=== PATIENT | female | born 1980 | race Caucasian/White ===

== ENCOUNTER → 2017-11-18 13:17 | Outpatient (POV) | payer BC, SELFPAY | PROVIDERS: Visit Provider Nurse Practitioner Acute Care | DX: Z00.00 Encounter for general adult medical examination without abnormal findings (principal) ==

== ENCOUNTER → 2017-12-19 10:18 | Outpatient (REF) | payer BC, SELFPAY ==
[2017-12-20 11:22] LABS: Hemoglobin A1C 5.1 % (0.0-7.0)
== END ==
LOC: LAB 10:18
PROVIDERS: Family Provider Emergency Medicine; PCP Nurse Practitioner Family; Visit Provider Nurse Practitioner Family
DX: R53.83 Other fatigue (principal)
CPT/HCPCS: 83036

== ENCOUNTER 2018-04-15 17:43 | Observation (INO) ==
--- NOTE | 2018-04-15 18:15 | Emergency Department Note ---
ED Disposition Condition on Discharge: Fair - Critical Care Critical Care Time: No <VioletaMatheus - Last Filed: 04/15/18 19:58> <Silverio Sanchez - Last Filed: 04/15/18 20:20> Clinical Impression: Abdominal pain, generalized Bilious vomiting Qualifiers: Nausea presence: with nausea Qualified Code(s): R11.14 - Bilious vomiting Disposition: Admitted as Observation Attestation: On 04/15/18, the high probability of a clinically significant, sudden or life threatening deterioration of the following system(s) required my full and direct attention, intervention and personal management. The time I documented below is in addition to time spent performing reported procedures but includes the following listed in this critical care notation. Medical Decision Making - Elio Inquiry Pt receiving controlled substance: Yes Elio was queried for this patient: No Reason not queried -: Emergent pt cond-no time Risks and benefits of using a controlled substance: were not discussed with pt by me - Lab Data Result diagrams: 04/15/18 18:20 04/15/18 18:20 - Reevaluation(s) Time: 19:58 <VioletaMatheus - Last Filed: 04/15/18 19:58> - Lab Data Result diagrams: 04/15/18 18:20 04/15/18 18:20 - CT Data CT Scan: Abdomen, Pelvis Time Received: 20:[address] Reviewed: Yes: I have viewed the radiologist's interpretation Preliminary Findings: Abnormal (see report) <Silverio Sanchez - Last Filed: 04/15/18 20:20> Vital Signs: 04/15/18 17:43 Temperature 97.9 F Temperature Source Oral Pulse Rate [Right Radial] 62 Respiratory Rate 24 Blood Pressure [Right Arm] 158/84 Blood Pressure Mean [Right Arm] 108 Blood Pressure Source [Right Arm] Automatic Cuff Blood Pressure Position [Right Arm] Sitting 02 Sat by Pulse Oximetry 99 Oxygen Delivery Method Room Air - Lab Data Lab Results 04/15/18 12:20: Serum HCG, Qual Negative 04/15/18 18:20: WBC 14.0 H, RBC 5.43 H, Hgb 16.2, Hct 49.8 H, MCV 91.6, MCH 29.8 , MCHC 32.6, RDW 13.0, Plt Count 235, MPV 8.0, Neut % (Auto) 87.9 H, Lymph % ( Auto) 8.4 L, [place] % (Auto) 2.2, Eos % (Auto) 1.3, Baso % (Auto) 0.1, Neut # ( Auto) 12.3 H, Lymph # (Auto) 1.2, [place] # (Auto) 0.3, Eos # (Auto) 0.2, Baso # ( Auto) 0.0, Total Counted 100, Neutrophils % (Manual) 89 H, Lymphocytes % (Manual ) 9 L, Monocytes % (Manual) 2, Platelet Estimate Normal, RBC Morphology Normal 04/15/18 18:20: Sodium 142, Potassium 3.8, Chloride 106, Carbon Dioxide 23, Anion Gap 16.8 H, BUN 13, Creatinine 0.59, Estimated Creat Clear 130, Estimated GFR 114, Est GFR ( Amer) 138, Glucose 141 H, Calcium 9.4, Total Bilirubin 1.4 H, AST 17, ALT 20, Alkaline Phosphatase 72, Total Protein 7.9, Albumin 4.2, Globulin 3.7 H, Albumin/Globulin Ratio 1.1, Lipase 59 L 04/15/18 18:30: Troponin I < 0.02 04/15/18 19:26: Urine Color Yellow, Urine Appearance Clear, Urine pH 6.5, Ur Specific [place] 1.015, Urine Protein Negative, Urine Glucose (UA) Negative, Urine Ketones 3+, Urine Blood 2+, Urine Nitrate Negative, Urine Bilirubin Negative, Urine Urobilinogen 0.2, Ur Leukocyte Esterase Negative, Urine RBC 10- 20, Urine WBC 3-5, Ur Squamous Epith Cells 3-5, Urine Bacteria 1+, Urine Mucus 1 + Orders (Tests/Meds): ED MEDICATIONS Discontinued Medications Generic Name Dose Route Start Last Admin Trade Name Freq PRN Reason Stop Dose Admin Famotidine 20 mg 04/15/18 18:33 04/15/18 18:45 Pepcid 20mg/2ml Vial IV 04/15/18 18:34 20 mg ONCE ONE Administration Sodium Chloride 1,000 mls @ 999 mls/hr 04/15/18 18:15 04/15/18 18:09 Sod Chlor 0.9% 1000ml Bag IV 04/15/18 19:15 999 mls/hr .[id number] JANET Administration Iopamidol 75 ml 04/15/18 19:13 04/15/18 19:14 [id number]; 75ml Vial IV 04/15/18 19:14 75 ml ONCE ONE Administration Morphine Sulfate 4 mg 04/15/18 18:29 04/15/18 18:45 Morphine 4mg/Ml Syringe IV 04/15/18 18:30 4 mg ONCE ONE Administration Ondansetron HCl 4 mg 04/15/18 18:08 04/15/18 18:09 Zofran 4mg/2ml Vial IV 04/15/18 18:09 4 mg ONCE ONE Administration Prochlorperazine Edisylate 5 mg 04/15/18 19:59 04/15/18 20:08 Compazine 10mg/2ml Vial IV 04/15/18 20:00 5 mg ONCE ONE Administration Promethazine HCl 12.5 mg 04/15/18 18:29 04/15/18 18:46 Phenergan 25mg/Ml 1ml Vial IV 04/15/18 18:30 12.5 mg ONCE ONE Administration Sodium Chloride 25 ml 04/15/18 18:29 04/15/18 18:47 Sod Chlor 0.9% 25ml Bag IV 04/15/18 18:30 25 ml ONCE ONE Administration Sodium Chloride 10 ml 04/15/18 19:13 04/15/18 19:14 Rad-Saline Flush 10ml Syringe IV 04/15/18 19:14 10 ml ONCE ONE Administration ORDERS Category Date Time Status CT abdomen pelvis w con Stat Cat Scan 04/15/18 18:31 Taken - ECG Data Tracing #1 EKG interpreted by Matheus Mcdaniel MD: Rhythm: sinus bradycardia Rate: 52 [place]: normal Ectopy: none Conduction: normal ST Segment Changes: none T Wave Changes: none Q Waves: none No evidence of acute ischemia or injury (Matheus Mcdaniel) - Reevaluation(s) Reevaluation #1: States minimally improved. Has vomited 3 times since she received Phenergan. The pain is more intermittent now. (Matheus Mcdaniel) Medical Decision Narrative: 8:00 PM: At shift change, I have discussed the patient with Dr. Sanchez, who will assume care of the patient at this time. I have discussed all clinical information including history, physical and diagnostic study results. Preliminary diagnoses based on information available at this point have been recorded by me. Controlled substance administration and critical care statement are also preliminary, as of the time of handoff. (Matheus Mcdaniel) General Adult HPI - General Mode of Arrival: Wheelchair Limitations: No Limitations Description of Symptoms (Recalled from ER Triage Doc. by RN): abd pain for a year. states doctors have been trying to "figure out whats going on forever and can't." reports vomiting today and has taken 3 zofran. pt constipated as well. <Matheus Mcdaniel - Last Filed: 04/15/18 19:58> <Silverio Sanchez - Last Filed: 04/15/18 20:20> - General Chief complaint: Abdominal Pain Stated complaint: ABD PAIN Time Seen by Provider: 04/15/18 18:15 - History of Present Illness HPI narrative: Recurrent episodes of abdominal pain and vomiting for 10 months or more. She says when she initially got this she had daily abdominal pain and vomiting for a whole month. Eventually had a cholecystectomy done by Dr. Sorto. Symptoms did not resolve. Since then she has been seen by Dr. Figueroa gastroenterology and is currently seeing Dr. Franks gastroenterology in [place]. About 3-4 weeks ago she had an upper and lower endoscopy. She was supposed to see Dr. Franks today for follow-up, but says that she could not because she was too sick with abdominal pain and vomiting. She says that she had diarrhea that started a couple of days ago, no blood. This morning she started with severe periumbilical abdominal pain and repetitive episodes of vomiting. She has chronic nausea and is on Zofran daily, today it did not help the nausea or vomiting. She states that nausea has been constant and daily since all of this started, but the severe episodes of pain are infrequent. She says this is the first significant episode of pain she has had in about 7-8 months. States she is also having a lot of belching and reflux. She is not on any sort of antacids. (Matheus Mcdaniel) - Related Data Home Medications Medication Instructions Recorded Confirmed meloxicam 7.5 mg tablet 7.5 mg PO BID tab 12/19/17 ondansetron HCl 4 mg tablet 4 mg PO Q4H PRN 12/19/17 Previous Rx's Medication Instructions Recorded metoclopramide 5 mg tablet 5 mg PO TID #42 tab 12/19/17 naproxen 500 mg tablet 500 mg PO Q12H #60 tab 12/19/17 ondansetron HCl 4 mg tablet 4 mg PO Q8H PRN #14 tab 02/18/18 clonidine HCl 0.1 mg tablet 0.1 mg PO DAILY #90 tab 03/09/18 sertraline 50 mg tablet 75 mg PO DAILY #90 tab 03/09/18 Allergies Allergy/AdvReac Type Severity Reaction Status Date / Time Penicillins [PENICILLINS] Allergy Unknown Verified 04/15/18 17:58 [facility] History I have reviewed the patient's past medical history: Yes Medical History: Reports:: Anxiety, Depression, Hypertension Amputation: No Fractures: No - Social History Educational Level: Completed GED/General Educational Development Smoking Status: Current every day smoker Tobacco Type: cigarettes # Packs/Day (cigarettes): 1 Alcohol Intake: never Substance Use Type: denies use - Psychiatric History Expresses thoughts of harming self/others: None Suicide Plan Description: No Plan Pschychiatric History:: Reports:: Anxiety, Depression <VioletaMatheus - Last Filed: 04/15/18 19:58> ROS Obtained: Yes All systems reviewed & no additional complaints - Constitutional Constitutional: Denies fever(s) - Cardiovascular Cardiovascular: Denies chest pain - Respiratory Respiratory: No dyspnea - Gastrointestinal Gastrointestingal: Reports: abdominal pain, belching, diarrhea, dyspepsia, nausea, vomiting <KimoMatheus nicole - Last Filed: 04/15/18 19:58> Physical Exam - General General appearance: alert - Head Head exam: atraumatic, normocephalic - Eye Eye exam: Present: normal appearance, PERRL, EOMI - ENT ENT exam: Present: normal exam, normal oropharynx, mucous membranes moist, TM's normal bilaterally, normal external ear exam - Neck Neck exam: Present: normal inspection, full ROM, trachea midline. Absent: meningismus, lymphadenopathy - Chest Chest inspection: Present: normal inspection, symmetric chest wall rise. Absent : tenderness - Respiratory Respiratory exam: Present: normal lung sounds bilaterally. Absent: respiratory distress - Cardiovascular Cardiovascular exam: Present: regular rate, normal rhythm. Absent: JVD - Abdominal Exam Abdominal exam: Present: soft, tenderness, normal bowel sounds. Absent: distention, guarding, rebound, rigidity Abdominal tenderness: Present: diffuse - Extremities Exam Extremities exam: Present: normal inspection, full ROM, normal capillary refill. Absent: calf tenderness - Neurological Exam Neurological exam: Present: alert, oriented X3 - Psychiatric Psychiatric exam: Present: normal affect, normal mood - Skin Skin exam: Present: warm, dry, intact, normal color <Matheus Mcdaniel - Last Filed: 04/15/18 19:58> <Silverio Sanchez - Last Filed: 04/15/18 20:20> - General Comment: Appears uncomfortable, belching frequently. (Matheus Mcdaniel)
[2018-04-15 18:31] LABS: Basophils % 0.1 % (0.1-2.0); Eosinophils # 0.2 K/mm3 (0.0-0.4); Eosinophils % 1.3 % (0.1-12.0); Hematocrit 49.8 % (37.0-47.0); Hemoglobin 16.2 g/dL (12.2-16.2); Lymphocytes # 1.2 K/mm3 (0.7-4.5); Lymphocytes % 8.4 K/mm3 (10-50); Mean Corpuscular HGB Conc 32.6 g/dL (31.8-35.4); Mean Corpuscular Hemoglobin 29.8 pg (27.0-31.2); Mean Corpuscular Volume 91.6 fl (81-99); Monocytes # 0.3 K/mm3 (0.1-1.0); Monocytes % 2.2 % (1.7-9.3); Neutrophils # 12.3 K/mm3 (1.8-7.8); Neutrophils % 87.9 % (37.0-80.0); Platelet Count 235 K/mm3 (142-424); Red Blood Count 5.43 M/mm3 (4.20-5.40)
[2018-04-15 18:45] LABS: Albumin Level 4.2 gm/dL (3.4-5.0); Albumin/Globulin Ratio 1.1 (1.1-1.8); Anion Gap 16.8 mEq/L (5-15); Bilirubin,Total 1.4 mg/dL (0.2-1.0); Calcium 9.4 mg/dL (8.5-10.1); Globulin 3.7 gm/dl (1.3-3.2); Potassium 3.8 mmoL/L (3.5-5.1); Total Protein,Serum 7.9 gm/dL (6.4-8.2)
[2018-04-15 19:43] LABS: Microscopic, Urine URINE MICROSCOPIC (MICROSCOPIC)
[2018-04-15 19:50] LABS: Appearance,Urine CLEAR (Clear); Bilirubin,Urine Negative (Negative); Blood, Urine 2+ (Negative); Color,Urine YELLOW (Yellow); Glucose,Urine (UA) Negative (Negative); Ketones,Urine 3+ (Negative); Leukocyte Esterase,Urine Negative (Negative); PH,Urine 6.5 (5.0-8.5); Protein,Urine Negative (Negative); Specific Gravity, Urine 1.015 (1.005-1.030); Urobilinogen,Urine 0.2 EU/dl (0.2)
[2018-04-15 19:53] LABS: Lymphocytes % 9 % (10-50); Monocytes % 2 % (2-9); Neutrophils % 89 % (42-76); Total Cells Counted 100
[2018-04-15 19:54] LABS: RBC Morphology Normal
[2018-04-15 20:13] LABS: Bacteria,Urine 1+ /lpf
[2018-04-15 20:14] LABS: Mucus,Urine 1+ /lpf
--- NOTE | 2018-04-15 20:41 | History & Physical Report ---
*Admission Date: 04/15/18 *Chief complaint: abd pain *History of present illness: this wf with upper abd pain assoc with vomiting and nausea presents to ed with sx despite at home meds - she has been seen by dr figueroa and also had recent colonoscopy and egd per dr de jesus - she has had gb surg and denied any fever or diarrhea and no melena - ecurrent episodes of abdominal pain and vomiting for 10 months or more. She says when she initially got this she had daily abdominal pain and vomiting for a whole month. Eventually had a cholecystectomy done by Dr. Sorto. Symptoms did not resolve. Since then she has been seen by Dr. Figueroa gastroenterology and is currently seeing Dr. De Jesus gastroenterology in [place]. About 3-4 weeks ago she had an upper and lower endoscopy. She was supposed to see Dr. De Jesus today for follow-up, but says that she could not because she was too sick with abdominal pain and vomiting. She says that she had diarrhea that started a couple of days ago, no blood. This morning she started with severe periumbilical abdominal pain and repetitive episodes of vomiting. She has chronic nausea and is on Zofran daily, today it did not help the nausea or vomiting. She states that nausea has been constant and daily since all of this started, but the severe episodes of pain are infrequent. She says this is the first significant episode of pain she has had in about 7-8 months. States she is also having a lot of belching and reflux. She is not on any sort of antacids. [facility] History I have reviewed the patient's past medical history: Yes Medical History: Reports:: Anxiety, Depression, Hypertension Amputation: No Fractures: No - *Social History Educational Level: Completed GED/General Educational Development Smoking Status: Current every day smoker Tobacco Type: cigarettes # Packs/Day (cigarettes): 1 Alcohol Intake: never Substance Use Type: denies use - Psychiatric History Expresses thoughts of harming self/others: None Suicide Plan Description: No Plan Pschychiatric History:: Reports:: Anxiety, Depression Review of Systems - Review of Systems Review of systems:: pertinent systems reviewed and negative unless documented below - Constitutional Denies fever(s) - Eyes Denies change in vision - ENT Denies sinus pain - *Cardiovascular Denies chest pain - *Respiratory Denies cough - *Gastrointestinal Reports abdominal pain, Reports nausea, Reports vomiting, Denies coffee ground vomit, Denies bright, red blood in stools, Denies black, tarry stools - *Genitourinary Denies blood in urine - *Musculoskeletal Denies joint pain, Denies joint swelling - Integumentary/Breasts Denies rash - *Neurologic Denies seizure-like activity, Denies seizure-like activity - Psychiatric Denies anxiety Meds Home Medications Medication Instructions Recorded Confirmed Type meloxicam 7.5 mg tablet 7.5 mg PO BID tab 12/19/17 History ondansetron HCl 4 mg tablet 4 mg PO Q4H PRN 12/19/17 History Allergies Allergy/AdvReac Type Severity Reaction Status Date / Time Penicillins [PENICILLINS] Allergy Unknown Verified 04/15/18 17:58 Exam Vital signs and Labs for Last 24 Hours: Temp Pulse Resp BP Pulse Ox 97.9 F 62 24 158/84 99 04/15/18 17:43 04/15/18 17:43 04/15/18 17:43 04/15/18 17:43 04/15/18 17:43 Laboratory Results - last 24 hr 04/15/18 12:20: Serum HCG, Qual Negative 04/15/18 18:20: WBC 14.0 H, RBC 5.43 H, Hgb 16.2, Hct 49.8 H, MCV 91.6, MCH 29.8 , MCHC 32.6, RDW 13.0, Plt Count 235, MPV 8.0, Neut % (Auto) 87.9 H, Lymph % ( Auto) 8.4 L, [place] % (Auto) 2.2, Eos % (Auto) 1.3, Baso % (Auto) 0.1, Neut # ( Auto) 12.3 H, Lymph # (Auto) 1.2, [place] # (Auto) 0.3, Eos # (Auto) 0.2, Baso # ( Auto) 0.0, Total Counted 100, Neutrophils % (Manual) 89 H, Lymphocytes % (Manual ) 9 L, Monocytes % (Manual) 2, Platelet Estimate Normal, RBC Morphology Normal 04/15/18 18:20: Sodium 142, Potassium 3.8, Chloride 106, Carbon Dioxide 23, Anion Gap 16.8 H, BUN 13, Creatinine 0.59, Estimated Creat Clear 130, Estimated GFR 114, Est GFR ( Amer) 138, Glucose 141 H, Calcium 9.4, Total Bilirubin 1.4 H, AST 17, ALT 20, Alkaline Phosphatase 72, Total Protein 7.9, Albumin 4.2, Globulin 3.7 H, Albumin/Globulin Ratio 1.1, Lipase 59 L 04/15/18 18:30: Troponin I < 0.02 04/15/18 19:26: Urine Color Yellow, Urine Appearance Clear, Urine pH 6.5, Ur Specific [place] 1.015, Urine Protein Negative, Urine Glucose (UA) Negative, Urine Ketones 3+, Urine Blood 2+, Urine Nitrate Negative, Urine Bilirubin Negative, Urine Urobilinogen 0.2, Ur Leukocyte Esterase Negative, Urine RBC 10- 20, Urine WBC 3-5, Ur Squamous Epith Cells 3-5, Urine Bacteria 1+, Urine Mucus 1 + I & O for Last 24 hours: Intake & Output 04/13/18 04/14/18 04/15/18 04/16/18 11:59 11:59 11:59 11:59 Weight 140 lb - Constitutional no acute distress, average body habitus - *Routine HEENT Exam Head: Present: normocephalic Eye: Present: EOMI, PERRL. Absent: conjunctival icterus ENT: Present: mucous membranes dry - *Routine Neck Exam Present: supple - *Routine Respiratory Exam Present: CTA bilaterally - *Routine Cardiovascular Exam Present: RRR. Absent: murmur - *Routine Abdominal Exam Present: soft, tenderness - *Routine Extremities Exam Present: full ROM - *Routine Skin Exam Present: intact - *Routine Neurological Exam Present: alert, oriented X3, CN II-XII intact - Routine Psychiatric Exam Present: normal affect H&P: Result - Labs Labs: Short CBC 04/15/18 Range/Units 18:20 WBC 14.0 H (4.8-10.8) K/mm3 Hgb 16.2 (12.2-16.2) g/dL Hct 49.8 H (37.0-47.0) % Plt Count 235 (142-424) K/mm3 BMP 04/15/18 18:20 Sodium 142 Potassium 3.8 Chloride 106 Carbon Dioxide 23 BUN 13 Creatinine 0.59 Glucose 141 H Calcium 9.4 Cardiac Enzymes 04/15/18 Range/Units 18:30 Troponin I < 0.02 (0.00-0.06) ng/ml Liver Function 04/15/18 Range/Units 18:20 Total Bilirubin 1.4 H (0.2-1.0) mg/dL AST 17 (15-37) U/L ALT 20 (12-78) U/L Alkaline Phosphatase 72 (46-116) U/L Albumin 4.2 (3.4-5.0) gm/dL Urine 04/15/18 Range/Units 19:26 Urine Color Yellow (Yellow) Urine Appearance Clear (Clear) Urine pH 6.5 (5.0-8.5) Ur Specific [place] 1.015 (1.005-1.030) Urine Protein Negative (Negative) Urine Glucose (UA) Negative (Negative) Assessment and Plan (1) Vomiting Current visit: Yes Status: Acute Category: Medical Code(s): R11.10 - Vomiting, unspecified (2) Abdominal pain, generalized Current visit: Yes Status: Acute Category: Medical Code(s): R10.84 - Generalized abdominal pain
--- NOTE | 2018-04-16 06:48 | Consult Report ---
*Admission Date: 04/15/18 *Chief complaint: Abdominal pain and vomiting *History of present illness: Patient is a 38-year-old white female with greater than a year history of abdominal pain with associated nausea and vomiting. She is undergone thorough workup. She did ultimately undergo laparoscopic cholecystectomy last June. It should be noted, the patient had previous laparoscopic appendectomy 7 or 8 years ago in [place]. She has had ongoing intermittent pain of unclear etiology. She seen several gastroenterologists and actually required hospitalization at [facility] last June due to persistent pain. She has seen Dr. Figueroa. Patient is also seeing Dr. Piotr Franks in [place] more recently and had upper endoscopy and colonoscopy several weeks ago. Exact details are unknown. She did have an appointment to see him as an outpatient yesterday but had another episode of nausea and vomiting with abdominal pain. She therefore presented to the emergency department at [facility]. She underwent evaluation which was relatively unremarkable. She had CT scan with intravenous contrast which revealed essentially no acute surgical issues. Much of the findings were gynecologic and urologic. She did have some nonspecific minor stranding near the terry hepatis. Final report is pending. She had persistent pain and nausea and was admitted for inpatient management and surgical consultation. This morning she felt somewhat better although she states that she has received narcotics and anti-emetics. Review of Systems - Review of Systems Review of systems:: pertinent systems reviewed and negative unless documented below - *Neurologic Denies seizure-like activity, Denies seizure-like activity [facility] History Medical History: Reports:: Anxiety, Depression, Hypertension Denies:: Cancer, Diabetes Mellitus Type 1, Diabetes Mellitus Type 2, MRSA Other Surgeries: Yes: Tubal Ligation Amputation: No Fractures: No - *Social History Educational Level: Completed GED/General Educational Development Smoking Status: Current every day smoker Tobacco Type: cigarettes # Packs/Day (cigarettes): 1 #Yrs smoked (if former smoker): 20 Alcohol Intake: never Substance Use Type: denies use Occupational Status: employed Housing: house Household Members: family - Psychiatric History Expresses thoughts of harming self/others: None Suicide Plan Description: No Plan Pschychiatric History:: Reports:: Anxiety, Depression *Family Hx:: Heart Attack, Hypertension, Stroke, Thyroid Disorder Meds Allergies Allergy/AdvReac Type Severity Reaction Status Date / Time Penicillins [PENICILLINS] Allergy Unknown Verified 04/15/18 21:45 Exam Vital signs and Labs for Last 24 Hours: Temp Pulse Resp BP Pulse Ox 98.3 F 68 16 98/53 98 04/16/18 04:00 04/16/18 04:00 04/16/18 04:00 04/16/18 04:00 04/16/18 04:00 Laboratory Results - last 24 hr 04/15/18 12:20: Serum HCG, Qual Negative 04/15/18 18:20: WBC 14.0 H, RBC 5.43 H, Hgb 16.2, Hct 49.8 H, MCV 91.6, MCH 29.8 , MCHC 32.6, RDW 13.0, Plt Count 235, MPV 8.0, Neut % (Auto) 87.9 H, Lymph % ( Auto) 8.4 L, [place] % (Auto) 2.2, Eos % (Auto) 1.3, Baso % (Auto) 0.1, Neut # ( Auto) 12.3 H, Lymph # (Auto) 1.2, [place] # (Auto) 0.3, Eos # (Auto) 0.2, Baso # ( Auto) 0.0, Total Counted 100, Neutrophils % (Manual) 89 H, Lymphocytes % (Manual ) 9 L, Monocytes % (Manual) 2, Platelet Estimate Normal, RBC Morphology Normal 04/15/18 18:20: Sodium 142, Potassium 3.8, Chloride 106, Carbon Dioxide 23, Anion Gap 16.8 H, BUN 13, Creatinine 0.59, Estimated Creat Clear 130, Estimated GFR 114, Est GFR ( Amer) 138, Glucose 141 H, Calcium 9.4, Total Bilirubin 1.4 H, AST 17, ALT 20, Alkaline Phosphatase 72, Total Protein 7.9, Albumin 4.2, Globulin 3.7 H, Albumin/Globulin Ratio 1.1, Lipase 59 L 04/15/18 18:30: Troponin I < 0.02 04/15/18 19:26: Urine Color Yellow, Urine Appearance Clear, Urine pH 6.5, Ur Specific [place] 1.015, Urine Protein Negative, Urine Glucose (UA) Negative, Urine Ketones 3+, Urine Blood 2+, Urine Nitrate Negative, Urine Bilirubin Negative, Urine Urobilinogen 0.2, Ur Leukocyte Esterase Negative, Urine RBC 10- 20, Urine WBC 3-5, Ur Squamous Epith Cells 3-5, Urine Bacteria 1+, Urine Mucus 1 + I & O for Last 24 hours: Intake & Output 04/13/18 04/14/18 04/15/18 04/16/18 11:59 11:59 11:59 11:59 Intake Total 642 / 642 Output Total 150 / 150 Balance 492 / 492 Weight 126 lb - Constitutional no acute distress - *Routine Respiratory Exam Present: CTA bilaterally - *Routine Cardiovascular Exam Present: RRR - *Routine Abdominal Exam Present: soft. Absent: tenderness Results - Labs 04/15/18 18:20 04/15/18 18:20 Laboratory Results - last 24 hr 04/15/18 12:20: Serum HCG, Qual Negative 04/15/18 18:20: WBC 14.0 H, RBC 5.43 H, Hgb 16.2, Hct 49.8 H, MCV 91.6, MCH 29.8 , MCHC 32.6, RDW 13.0, Plt Count 235, MPV 8.0, Neut % (Auto) 87.9 H, Lymph % ( Auto) 8.4 L, [place] % (Auto) 2.2, Eos % (Auto) 1.3, Baso % (Auto) 0.1, Neut # ( Auto) 12.3 H, Lymph # (Auto) 1.2, [place] # (Auto) 0.3, Eos # (Auto) 0.2, Baso # ( Auto) 0.0, Total Counted 100, Neutrophils % (Manual) 89 H, Lymphocytes % (Manual ) 9 L, Monocytes % (Manual) 2, Platelet Estimate Normal, RBC Morphology Normal 04/15/18 18:20: Sodium 142, Potassium 3.8, Chloride 106, Carbon Dioxide 23, Anion Gap 16.8 H, BUN 13, Creatinine 0.59, Estimated Creat Clear 130, Estimated GFR 114, Est GFR ( Amer) 138, Glucose 141 H, Calcium 9.4, Total Bilirubin 1.4 H, AST 17, ALT 20, Alkaline Phosphatase 72, Total Protein 7.9, Albumin 4.2, Globulin 3.7 H, Albumin/Globulin Ratio 1.1, Lipase 59 L 04/15/18 18:30: Troponin I < 0.02 04/15/18 19:26: Urine Color Yellow, Urine Appearance Clear, Urine pH 6.5, Ur Specific [place] 1.015, Urine Protein Negative, Urine Glucose (UA) Negative, Urine Ketones 3+, Urine Blood 2+, Urine Nitrate Negative, Urine Bilirubin Negative, Urine Urobilinogen 0.2, Ur Leukocyte Esterase Negative, Urine RBC 10- 20, Urine WBC 3-5, Ur Squamous Epith Cells 3-5, Urine Bacteria 1+, Urine Mucus 1 + Assessment and Plan (1) Vomiting Current visit: Yes Status: Acute Category: Medical Code(s): R11.10 - Vomiting, unspecified (2) Abdominal pain, generalized Current visit: Yes Status: Acute Category: Medical Code(s): R10.84 - Generalized abdominal pain - Assessment and plan all Dx Assessment and Plan for all problems:: No evidence of any acute surgical issue. Will review final report of CT scan. Recommend ongoing outpatient gastroenterology evaluation and workup.
[2018-04-16 06:55] LABS: Basophils % 0.3 % (0.1-2.0); Eosinophils # 0.1 K/mm3 (0.0-0.4); Eosinophils % 0.4 % (0.1-12.0); Hematocrit 46.8 % (37.0-47.0); Lymphocytes # 3.6 K/mm3 (0.7-4.5); Lymphocytes % 27.6 K/mm3 (10-50); Mean Corpuscular HGB Conc 32.2 g/dL (31.8-35.4); Mean Corpuscular Hemoglobin 29.9 pg (27.0-31.2); Mean Corpuscular Volume 92.8 fl (81-99); Mean Platelet Volume 8.2 fl (7.4-10.4); Monocytes # 0.7 K/mm3 (0.1-1.0); Monocytes % 5.2 % (1.7-9.3); Neutrophils # 8.7 K/mm3 (1.8-7.8); Neutrophils % 66.6 % (37.0-80.0); Platelet Count 225 K/mm3 (142-424); Red Blood Count 5.04 M/mm3 (4.20-5.40)
[2018-04-16 06:57] LABS: Anion Gap 15.4 mEq/L (5-15); Potassium 3.4 mmoL/L (3.5-5.1)
--- NOTE | 2018-04-16 07:23 | Pharmacy Consult Notes ---
[facility] Pharmacy VTE Monitoring - Patient Demographics Admission date: 04/15/18 Report Date: 04/16/18 Time: 07:23 Allergies/Adverse Reactions: Patient Allergies Penicillins [PENICILLINS] Allergy (Unknown, Verified 04/15/18 21:45) Height: 1.6 m Weight: 57.153 kg Patient Problems: Current Active Problems Abdominal pain, generalized (Acute) Bilious vomiting (Acute) Vomiting (Acute) - VTE Risk Labs: VTE Related Lab Results Hgb 15.0 g/dL (12.2-16.2) 04/16/18 06:22 Hct 46.8 % (37.0-47.0) 04/16/18 06:22 Plt Count 225 K/mm3 (142-424) 04/16/18 06:22 BUN 13 mg/dL (7-18) 04/15/18 18:20 Creatinine 0.59 mg/dL (0.55-1.02) 04/15/18 18:20 Estimated Creat Clear 130 mL/min (0-300) 04/15/18 18:20 Was VTE Risk Assessment Performed: Yes VTE Score: 0 VTE Risk Level: Very Low Risk - Prophylaxis VTE Prophylaxis Ordered?: Yes Types of VTE Prophylaxis: TEDS Knee High Location of Applied Device: Bilateral Lower Extremeties - VTE Diagnosis Confirmed Treatment or plan recommended: Continue Current Treatment
--- NOTE | 2018-04-16 08:27 | Discharge Summary ---
General - General Admission date:: 04/15/18 Discharge date: 04/16/18 HPI HPI: Patient is a 38-year-old white female with greater than a year history of abdominal pain with associated nausea and vomiting. She is undergone thorough workup. She did ultimately undergo laparoscopic cholecystectomy last June. It should be noted, the patient had previous laparoscopic appendectomy 7 or 8 years ago in [place]. She has had ongoing intermittent pain of unclear etiology. She seen several gastroenterologists and actually required hospitalization at [facility] last June due to persistent pain. She has seen Dr. Figueroa. Patient is also seeing Dr. Piotr De Jesus in [place] more recently and had upper endoscopy and colonoscopy several weeks ago. Exact details are unknown. She did have an appointment to see him as an outpatient yesterday but had another episode of nausea and vomiting with abdominal pain. She therefore presented to the emergency department at . She underwent evaluation which was relatively unremarkable. She had CT scan with intravenous contrast which revealed essentially no acute surgical issues. Much of the findings were gynecologic and urologic. She did have some nonspecific minor stranding near the terry hepatis. Final report is pending. She had persistent pain and nausea and was admitted for inpatient management and surgical consultation. This morning she felt somewhat better although she states that she has received narcotics and anti-emetics. Hospital Course Hospital Course: pt did well over night and has less pain and dec vomiting - she was seen by surg and will follow up with gi- dr de jesus- labs stable Objective Vital signs: Temp Pulse Resp BP Pulse Ox 98.3 F 68 16 98/53 98 04/16/18 04:00 04/16/18 04:00 04/16/18 04:00 04/16/18 04:00 04/16/18 04:00 no acute distress - *Routine HEENT Exam Head: Present: normocephalic Eye: Present: EOMI, PERRL ENT: Present: mucous membranes dry - *Routine Neck Exam Present: supple - *Routine Respiratory Exam Absent: respiratory distress - *Routine Cardiovascular Exam Present: RRR - *Routine Abdominal Exam Present: soft - *Routine Extremities Exam Present: full ROM - *Routine Skin Exam Present: intact - *Routine Neurological Exam Present: alert, oriented X3, CN II-XII intact - Routine Psychiatric Exam Present: normal affect Results Labs on day of discharge: Labs from last 24 hours 04/16/18 04/16/18 04/15/18 06:22 06:22 19:26 WBC 13.0 H RBC 5.04 Hgb 15.0 Hct 46.8 MCV 92.8 MCH 29.9 MCHC 32.2 RDW 13.0 Plt Count 225 MPV 8.2 Neut % (Auto) 66.6 Lymph % (Auto) 27.6 Barton % (Auto) 5.2 Eos % (Auto) 0.4 Baso % (Auto) 0.3 Neut # (Auto) 8.7 H Lymph # (Auto) 3.6 Barton # (Auto) 0.7 Eos # (Auto) 0.1 Baso # (Auto) 0.0 Total Counted Neutrophils % (Manual) Lymphocytes % (Manual) Monocytes % (Manual) Platelet Estimate RBC Morphology Sodium 141 Potassium 3.4 L Chloride 105 Carbon Dioxide 24 Anion Gap 15.4 H BUN 11 Creatinine 0.60 Estimated Creat Clear 114 Estimated GFR 111 Est GFR ( Amer) 135 Glucose 89 D Calcium 9.0 Total Bilirubin AST ALT Alkaline Phosphatase Troponin I Total Protein Albumin Globulin Albumin/Globulin Ratio Lipase Serum HCG, Qual Urine Color Yellow Urine Appearance Clear Urine pH 6.5 Ur Specific [place] 1.015 Urine Protein Negative Urine Glucose (UA) Negative Urine Ketones 3+ Urine Blood 2+ Urine Nitrate Negative Urine Bilirubin Negative Urine Urobilinogen 0.2 Ur Leukocyte Esterase Negative Urine RBC 10-20 Urine WBC 3-5 Ur Squamous Epith Cells 3-5 Urine Bacteria 1+ Urine Mucus 1+ 04/15/18 04/15/18 04/15/18 18:30 18:20 18:20 WBC 14.0 H RBC 5.43 H Hgb 16.2 Hct 49.8 H MCV 91.6 MCH 29.8 MCHC 32.6 RDW 13.0 Plt Count 235 MPV 8.0 Neut % (Auto) 87.9 H Lymph % (Auto) 8.4 L Barton % (Auto) 2.2 Eos % (Auto) 1.3 Baso % (Auto) 0.1 Neut # (Auto) 12.3 H Lymph # (Auto) 1.2 Barton # (Auto) 0.3 Eos # (Auto) 0.2 Baso # (Auto) 0.0 Total Counted 100 Neutrophils % (Manual) 89 H Lymphocytes % (Manual) 9 L Monocytes % (Manual) 2 Platelet Estimate Normal RBC Morphology Normal Sodium 142 Potassium 3.8 Chloride 106 Carbon Dioxide 23 Anion Gap 16.8 H BUN 13 Creatinine 0.59 Estimated Creat Clear 130 Estimated GFR 114 Est GFR ( Amer) 138 Glucose 141 H Calcium 9.4 Total Bilirubin 1.4 H AST 17 ALT 20 Alkaline Phosphatase 72 Troponin I < 0.02 Total Protein 7.9 Albumin 4.2 Globulin 3.7 H Albumin/Globulin Ratio 1.1 Lipase 59 L Serum HCG, Qual Urine Color Urine Appearance Urine pH Ur Specific [place] Urine Protein Urine Glucose (UA) Urine Ketones Urine Blood Urine Nitrate Urine Bilirubin Urine Urobilinogen Ur Leukocyte Esterase Urine RBC Urine WBC Ur Squamous Epith Cells Urine Bacteria Urine Mucus 04/15/18 12:20 WBC RBC Hgb Hct MCV MCH MCHC RDW Plt Count MPV Neut % (Auto) Lymph % (Auto) Barton % (Auto) Eos % (Auto) Baso % (Auto) Neut # (Auto) Lymph # (Auto) Barton # (Auto) Eos # (Auto) Baso # (Auto) Total Counted Neutrophils % (Manual) Lymphocytes % (Manual) Monocytes % (Manual) Platelet Estimate RBC Morphology Sodium Potassium Chloride Carbon Dioxide Anion Gap BUN Creatinine Estimated Creat Clear Estimated GFR Est GFR ( Amer) Glucose Calcium Total Bilirubin AST ALT Alkaline Phosphatase Troponin I Total Protein Albumin Globulin Albumin/Globulin Ratio Lipase Serum HCG, Qual Negative Urine Color Urine Appearance Urine pH Ur Specific [place] Urine Protein Urine Glucose (UA) Urine Ketones Urine Blood Urine Nitrate Urine Bilirubin Urine Urobilinogen Ur Leukocyte Esterase Urine RBC Urine WBC Ur Squamous Epith Cells Urine Bacteria Urine Mucus DS: Diagnosis - Discharge Diagnosis (1) Vomiting Status: Acute (2) Abdominal pain, generalized Status: Acute (3) Tobacco use Status: Acute Discharge Plan - Patient Discharge Instructions ACTIVITY: Continue current activity DIET: continue same diet - Follow up Plan Disposition: Home, Self-Alf Medications: Home Medications Medication Instructions Recorded Confirmed Type Naproxen [Naprosyn] 500 mg PO BID 04/16/18 04/16/18 History Ondansetron HCl [Ondansetron 4mg 4 mg PO TIDP PRN 04/16/18 04/16/18 History Tab] Sertraline HCl [Zoloft 50mg tablet] 75 mg PO DAILY 04/16/18 04/16/18 History cloNIDine HCl [cloNIDine 0.1mg 0.1 mg PO HS 04/16/18 04/16/18 History Tablet] Prescriptions/Medication Reconciliation: Continue Ondansetron HCl [Ondansetron 4mg Tab] 4 mg PO TIDP PRN PRN Reason: Nausea And Vomiting Sertraline HCl [Zoloft 50mg tablet] 75 mg PO DAILY cloNIDine HCl [cloNIDine 0.1mg Tablet] 0.1 mg PO HS Discontinued Naproxen [Naprosyn] 500 mg PO BID
== END 2018-04-16 08:45 | disposition home or self-care (01) ==
LOC: ER 17:43 → 2ND 17:43
PROVIDERS: ADMIT Emergency Medicine; ATTEND Emergency Medicine

== ENCOUNTER 2018-04-17 11:13 | Observation (INO) ==
--- NOTE | 2018-04-17 11:47 | Emergency Department Note ---
ED Disposition Clinical Impression: Intractable vomiting Qualifiers: Vomiting type: unspecified Nausea presence: with nausea Qualified Code(s): R11.2 - Nausea with vomiting, unspecified Abdominal pain Qualifiers: Abdominal location: generalized Qualified Code(s): R10.84 - Generalized abdominal pain Disposition: Admitted As Inpatient Condition on Discharge: Good Time of Disposition: 13:48 - Critical Care Critical Care Time: No Attestation: On 04/17/18, the high probability of a clinically significant, sudden or life threatening deterioration of the following system(s) required my full and direct attention, intervention and personal management. The time I documented below is in addition to time spent performing reported procedures but includes the following listed in this critical care notation. Medical Decision Making - Medical Records Medical records reviewed: Yes: I reviewed the patient's medical records. - Elio Inquiry Pt receiving controlled substance: No Vital Signs: 04/17/18 11:16 04/17/18 11:51 04/17/18 12:04 Temperature 98.4 F 98.4 F Temperature Source Oral Oral Pulse Rate Pulse Rate [Right Brachial] 57 L 50 L 65 Respiratory Rate 20 20 20 Blood Pressure Blood Pressure [Right Arm] 155/76 159/99 154/84 Blood Pressure Mean [Right Arm] 102 119 107 Blood Pressure Source Blood Pressure Source [Right Arm] Automatic Cuff Automatic Cuff Automatic Cuff Blood Pressure Position Blood Pressure Position [Right Arm] Sitting Supine Supine 02 Sat by Pulse Oximetry 97 100 97 Oxygen Delivery Method Room Air Room Air Room Air 04/17/18 12:42 04/17/18 13:53 04/17/18 13:54 Temperature 98.4 F 98.4 F Temperature Source Oral Oral Pulse Rate 60 Pulse Rate [Right Brachial] 54 L 67 Respiratory Rate 20 20 20 Blood Pressure 149/82 Blood Pressure [Right Arm] 149/82 131/67 Blood Pressure Mean [Right Arm] 104 88 Blood Pressure Source Automatic Cuff Blood Pressure Source [Right Arm] Automatic Cuff Automatic Cuff Blood Pressure Position Sitting Blood Pressure Position [Right Arm] Supine Sitting 02 Sat by Pulse Oximetry 100 100 Oxygen Delivery Method Room Air Room Air Room Air - Lab Data Lab results reviewed: Yes: I reviewed the patient's lab results. Orders (Tests/Meds): ED MEDICATIONS Generic Name Dose Route Start Last Admin Trade Name Freq PRN Reason Stop Dose Admin Sodium Chloride 1,000 mls @ 125 mls/hr 04/17/18 14:04 04/17/18 14:27 Sod Chlor 0.9% 1000ml Bag IV 05/17/18 14:03 125 mls/hr .Q8H JANET Administration Ketorolac Tromethamine 30 mg 04/17/18 14:04 04/17/18 16:04 Toradol 30mg/Ml Vial IV 04/22/18 14:03 30 mg Q6HP PRN Administration Moderate Pain Morphine Sulfate 4 mg 04/17/18 14:12 04/17/18 17:54 Morphine 4mg/Ml Syringe IV 05/17/18 14:11 4 mg Q4HP PRN Administration Moderate to Severe Pain Nicotine 21 mg 04/17/18 14:04 04/17/18 14:27 Nicoderm 21mg/24hr Patch TD 05/17/18 14:03 21 mg DAILYP PRN Administration Nicotine Cravings Ondansetron HCl 0.5 mg 04/17/18 14:04 04/17/18 17:54 Zofran 4mg/2ml Vial IV 05/17/18 14:03 0.5 mg Q4HP PRN Administration Nausea Discontinued Medications Generic Name Dose Route Start Last Admin Trade Name Freq PRN Reason Stop Dose Admin Famotidine 20 mg 04/17/18 12:34 04/17/18 12:39 Pepcid 20mg/2ml Vial IV 04/17/18 12:35 20 mg ONCE ONE Administration Sodium Chloride 1,000 mls @ 999 mls/hr 04/17/18 11:30 04/17/18 11:29 Sod Chlor 0.9% 1000ml Bag IV 04/17/18 12:30 999 mls/hr .Q1H1M JANET Administration Lorazepam 1 mg 04/17/18 11:18 04/17/18 11:29 Ativan 2mg/Ml Vial IV 04/17/18 11:19 1 mg ONCE ONE Administration Morphine Sulfate 4 mg 04/17/18 11:18 04/17/18 11:29 Morphine 4mg/Ml Syringe IV 04/17/18 11:19 4 mg ONCE ONE Administration Morphine Sulfate 4 mg 04/17/18 11:56 04/17/18 12:00 Morphine 4mg/Ml Syringe IV 04/17/18 11:57 4 mg ONCE ONE Administration Morphine Sulfate 0.5 mg 04/17/18 13:55 04/17/18 14:08 Morphine 2mg/Ml Syringe IV 04/17/18 13:56 0.5 mg ONCE ONE Administration Morphine Sulfate 0.5 mg 04/17/18 14:04 04/17/18 14:28 Morphine 2mg/Ml Syringe IV 04/17/18 14:05 Not Given ONCE ONE Pantoprazole Sodium 40 mg 04/17/18 12:34 04/17/18 12:39 Protonix 40mg Vial IV 04/17/18 12:35 40 mg ONCE ONE Administration Sodium Chloride 8 ml 04/17/18 12:34 04/17/18 12:40 Saline Flush 10ml Syringe IV 04/17/18 12:35 8 ml ONCE ONE Administration ORDERS Category Date Time Status Consult to General Surgery [CONS] Routine Cons 04/17/18 14:04 Ordered Hepatitis Panel (4) Stat Lab 04/17/18 13:07 Received - Physician Consults Physician Consulted: Jose Luna Time: 13:30 Reason -: Admission, Pt condition Comment/Response: Advised of patient's presentation and findings, agreeable with hospitalization, with surgical consult for Dr. Sorto. Plan is to continue IV hydration, IV antiemetics and IV pain medications. Blood work was performed on previous year visit this morning, and less CT scan of the abdomen and pelvis was obtained just 2 days ago. Abdominal Pain HPI - General Chief Complaint: Abdominal Pain Stated Complaint: pain Time Seen by Provider: 04/17/18 11:47 Mode of Arrival: Wheelchair Source of Information: Patient Limitations: No Limitations Description of Symptoms (Recalled from ER Triage Doc. by RN): WAS JUST DISCHARGED FROM THIS ED @ 1049 TODAY. WAS SEEN FOR C/O VOMITING AND ABDOMINAL PAIN WITH DIARRHEA. WAS DISCHARGED FROM THIS FACILITY ON 04/16/18 FOR SAME PROBLEM AND HAS APPOINTMENT TO FOLLOW UP WITH DR FRANKS ON 04/29/18. BACK WITH C/O SEVERE ABDOMINAL PAIN AND VOMITING - History of Present Illness HPI narrative: Patient was seen earlier this morning with same complaints, returns just 1 hour later to the emergency room with severe abdominal pain, nausea, vomiting, diarrhea. Patient was hospitalized and discharged home yesterday, again for same complaints, abdominal pain associated nausea vomiting or diarrhea. As a matter of fact patient has been having the same exact symptoms for the past 1 year. She has been seen by 2 different gastroenterologists in the past. On discharge, Dr. Sanchez advise patient to follow-up with Dr. Franks, her wet press tender in [place]. The patient just made the appointment with Dr. Franks from the emergency room, an hour ago. Patient denies any recent travel, denies any recent exposure to sick contacts. Patient has any blood in her vomitus or feces. Previously performed EGDs and colonoscopies were both normal. MD complaint: abdominal pain Onset (ago): year(s) (1) Consistency: intermittent Location: diffuse Severity: moderate Severity scale (1-10): 10 Quality: cramping, sharp Radiation: none Migration to: no migration Relieving factors: nothing Exacerbating factors: vomiting Associated symptoms: nausea, vomiting, diarrhea - Related Data Home Medications Medication Instructions Recorded Confirmed Sertraline HCl [Zoloft 50mg tablet] 75 mg PO DAILY 04/16/18 04/17/18 cloNIDine HCl [cloNIDine 0.1mg 0.1 mg PO HS 04/16/18 04/17/18 Tablet] Previous Rx's Medication Instructions Recorded Ondansetron [Zofran 4mg ODT] 4 mg PO QIDP PRN #20 tab.rapdis 04/17/18 Allergies Allergy/AdvReac Type Severity Reaction Status Date / Time Penicillins [PENICILLINS] Allergy Unknown Verified 04/15/18 21:45 [facility] History I have reviewed the patient's past medical history: Yes Medical History: Reports:: Anxiety, Depression, Hypertension Denies:: Cancer, Diabetes Mellitus Type 1, Diabetes Mellitus Type 2, MRSA Other Surgeries: Yes: Tubal Ligation Amputation: No Fractures: No - Social History Smoking Status: Current every day smoker Tobacco Type: cigarettes # Packs/Day (cigarettes): 1 #Yrs smoked (if former smoker): 20 Alcohol Intake: never Substance Use Type: denies use Occupational Status: employed Housing: house Household Members: family - Psychiatric History Expresses thoughts of harming self/others: None Suicide Plan Description: No Plan Pschychiatric History:: Reports:: Anxiety, Depression Family Hx:: Heart Attack, Hypertension, Stroke, Thyroid Disorder ROS Obtained: Yes All systems reviewed & no additional complaints, Yes Systems reviewed as appropriate & no additional complaints - Gastrointestinal Gastrointestingal: Reports: system reviewed and no additional complaints, except as docu, as per HPI, diarrhea, nausea, vomiting Physical Exam - General General appearance: alert, in distress (Moderate) - Head Head exam: atraumatic, normocephalic, normal inspection - Neck Neck exam: Present: normal inspection, full ROM, trachea midline. Absent: meningismus, lymphadenopathy - Chest Chest inspection: Present: normal inspection, symmetric chest wall rise. Absent : tenderness - Respiratory Respiratory exam: Present: normal lung sounds bilaterally. Absent: respiratory distress - Cardiovascular Cardiovascular exam: Present: regular rate, normal rhythm. Absent: JVD - Abdominal Exam Abdominal exam: Present: soft, tenderness (Diffusely tender), normal bowel sounds. Absent: distention, guarding - Extremities Exam Extremities exam: Present: normal inspection, full ROM, normal capillary refill. Absent: calf tenderness - Back Exam Back exam: Present: normal inspection. Absent: tenderness - Neurological Exam Neurological exam: Present: alert, oriented X3 - Psychiatric Psychiatric exam: Present: normal affect, normal mood - Skin Skin exam: Present: warm, dry, intact, normal color
--- NOTE | 2018-04-17 15:09 | Consult Report ---
*Admission Date: 04/17/18 *Chief complaint: Nausea and vomiting *History of present illness: This is a 38-year-old female who was recently admitted to her primary service with intractable nausea vomiting. She is undergoing evaluation by gastroenterology (Dr. Franks) in [facility] for multiple gastrointestinal complaints. No evidence of obstruction or other acute abnormality was noted during her recent hospitalization and she was discharged with plans for close reevaluation by Dr. Franks. She presented once again this morning to the emergency department with similar symptoms. She initially "felt a bit better" and was discharged just to return at which time she was admitted to her primary service. The surgical service was consulted during her recent admission. Please see Dr. Bolivar's note dated 04/15/2018. No obvious surgical issues were found at this time and no significant changes have been evident per the patient since Dr. Bolivar's evaluation. Review of Systems - Constitutional Denies chills - Eyes Denies change in vision - *Respiratory Denies cough - *Gastrointestinal Reports nausea, Reports vomiting [facility] History Medical History: Reports:: Anxiety, Depression, Hypertension Denies:: Cancer, Diabetes Mellitus Type 1, Diabetes Mellitus Type 2, MRSA Other Surgeries: Yes: Appendectomy, Cholecystectomy, Tubal Ligation Amputation: No Fractures: No - *Social History Educational Level: Completed GED/General Educational Development Smoking Status: Current every day smoker Tobacco Type: cigarettes # Packs/Day (cigarettes): 1 #Yrs smoked (if former smoker): 20 Alcohol Intake: never Substance Use Type: denies use Occupational Status: employed Housing: house Household Members: family - Psychiatric History Expresses thoughts of harming self/others: None Suicide Plan Description: No Plan Pschychiatric History:: Reports:: Anxiety, Depression *Family Hx:: Heart Attack, Hypertension, Stroke, Thyroid Disorder Meds Home Medications Medication Instructions Recorded Confirmed Type Sertraline HCl [Zoloft 50mg tablet] 75 mg PO DAILY 04/16/18 04/17/18 History cloNIDine HCl [cloNIDine 0.1mg 0.1 mg PO HS 04/16/18 04/17/18 History Tablet] Allergies Allergy/AdvReac Type Severity Reaction Status Date / Time Penicillins [PENICILLINS] Allergy Unknown Verified 04/15/18 21:45 Exam Vital signs and Labs for Last 24 Hours: Temp Pulse Resp BP Pulse Ox 99.0 F 52 L 16 130/70 98 06/07/18 14:13 04/17/18 14:13 04/17/18 14:13 04/17/18 14:13 04/17/18 14:13 I & O for Last 24 hours: Intake & Output 04/15/18 04/16/18 04/17/18 04/18/18 11:59 11:59 11:59 11:59 Weight 125 lb 130 lb - Constitutional no acute distress - *Routine Respiratory Exam Absent: respiratory distress - *Routine Cardiovascular Exam Present: RRR - *Routine Abdominal Exam Present: soft Comments: mildly TTP in mid-abdomen Assessment and Plan (1) Abdominal pain Current visit: Yes Status: Acute Qualifiers: Abdominal location: generalized Qualified Code(s): R10.84 - Generalized abdominal pain Category: Medical Code(s): R10.9 - Unspecified abdominal pain No specific acute surgical findings on recent evaluation. The patient is undergoing "work up" by Dr. Franks in [facility] and warrants further gastroenterology evaluation. Please see Dr. Bolivar's recent surgical consultation. (2) Intractable vomiting Current visit: Yes Status: Acute Qualifiers: Vomiting type: unspecified Nausea presence: with nausea Qualified Code(s) : R11.2 - Nausea with vomiting, unspecified Category: Medical Code(s): R11.10 - Vomiting, unspecified (3) Abdominal pain, generalized Current visit: No Status: Acute Category: Medical Code(s): R10.84 - Generalized abdominal pain (4) Bilious vomiting Current visit: No Status: Acute Qualifiers: Nausea presence: with nausea Qualified Code(s): R11.14 - Bilious vomiting Category: Medical Code(s): R11.14 - Bilious vomiting (5) Chronic abdominal pain Current visit: No Status: Acute Category: Medical Code(s): R10.9 - Unspecified abdominal pain; G89.29 - Other chronic pain (6) Diarrhea Current visit: No Status: Acute Category: Medical Code(s): R19.7 - Diarrhea, unspecified
--- NOTE | 2018-04-18 07:30 | Pharmacy Consult Notes ---
[facility] Pharmacy VTE Monitoring - Patient Demographics Admission date: 04/17/18 Report Date: 04/18/18 Time: 07:30 Allergies/Adverse Reactions: Patient Allergies Penicillins [PENICILLINS] Allergy (Unknown, Verified 04/15/18 21:45) Height: 1.6 m Weight: 58.967 kg Patient Problems: Current Active Problems Intractable vomiting (Acute) Abdominal pain (Acute) - VTE Risk Was VTE Risk Assessment Performed: Yes VTE Score: 0 VTE Risk Level: Very Low Risk - Prophylaxis VTE Prophylaxis Ordered?: Yes Types of VTE Prophylaxis: TEDS Knee High Location of Applied Device: Bilateral Lower Extremeties - VTE Diagnosis Confirmed Treatment or plan recommended: Continue Current Treatment
--- NOTE | 2018-04-18 08:49 | H&P/Discharge Summary ---
General - General Admission date:: 04/17/18 Discharge date: 04/18/18 *Admission Date: 04/17/18 *Chief complaint: abd pain *History of present illness: This is a 38-year-old female who was recently admitted to her primary service with intractable nausea vomiting. She is undergoing evaluation by gastroenterology (Dr. De Jesus) in [facility] for multiple gastrointestinal complaints. No evidence of obstruction or other acute abnormality was noted during her recent hospitalization and she was discharged with plans for close reevaluation by Dr. De Jesus. She presented once again this morning to the emergency department with similar symptoms. She initially "felt a bit better" and was discharged just to return at which time she was admitted to her primary service. The surgical service was consulted during her recent admission. Please see Dr. Bolivar's note dated 04/15/2018. No obvious surgical issues were found at this time and no significant changes have been evident per the patient since Dr. Bolivar's evaluation. [facility] History I have reviewed the patient's past medical history: Yes Medical History: Reports:: Anxiety, Depression, Hypertension Denies:: Cancer, Diabetes Mellitus Type 1, Diabetes Mellitus Type 2, MRSA Other Surgeries: Yes: Appendectomy, Cholecystectomy, Tubal Ligation Amputation: No Fractures: No - *Social History Educational Level: Completed GED/General Educational Development Smoking Status: Current every day smoker Tobacco Type: cigarettes # Packs/Day (cigarettes): 1 #Yrs smoked (if former smoker): 20 Alcohol Intake: never Substance Use Type: denies use Occupational Status: employed Housing: house Household Members: family - Psychiatric History Expresses thoughts of harming self/others: None Suicide Plan Description: No Plan Pschychiatric History:: Reports:: Anxiety, Depression *Family Hx:: Heart Attack, Hypertension, Stroke, Thyroid Disorder Review of Systems - Constitutional Denies chills, Denies headache(s) - Eyes Denies change in vision - ENT Denies difficulty swallowing - *Cardiovascular Denies chest pain with activity - *Respiratory Denies cough - *Gastrointestinal Reports cramping, Reports nausea, Reports vomiting - *Genitourinary Denies absent period, Denies urinary urgency - *Musculoskeletal Denies decreased muscle mass - Integumentary/Breasts Denies change in hair - *Neurologic Denies abnormal movements - Psychiatric Denies anxiety - Endocrine Denies heat intolerance - Hematologic/Lymphatic Denies enlarged lymph nodes - Allergic/Immunologic Denies lip swelling Exam Vital signs and Labs for Last 24 Hours: Temp Pulse Resp BP Pulse Ox 99.2 F 61 18 135/70 97 04/18/18 07:33 04/18/18 07:33 04/18/18 07:33 04/18/18 07:33 04/18/18 07:33 I & O for Last 24 hours: Intake & Output 04/15/18 04/16/18 04/17/18 04/18/18 11:59 11:59 11:59 11:59 Weight 125 lb 130 lb - Constitutional no acute distress - *Routine HEENT Exam Head: Present: normocephalic Eye: Present: PERRL ENT: Present: mucous membranes moist - *Routine Neck Exam Present: supple, full ROM - *Routine Respiratory Exam Present: CTA bilaterally - *Routine Cardiovascular Exam Present: RRR - *Routine Abdominal Exam Present: soft, normoactive bowel sounds - *Routine Extremities Exam Present: full ROM - *Routine Skin Exam Present: intact - *Routine Neurological Exam Present: alert, oriented X3, CN II-XII intact - Routine Psychiatric Exam Present: normal affect, normal thought process Hospital Course Hospital Course: prior ct scan: IMPRESSION: 1. No definite acute intra-abdominal or pelvic findings. 2. Nonspecific findings including a slightly striated nephrogram and minimal prominence of the intra and extrahepatic biliary tree in this patient that has had a prior cholecystectomy. 3. Small left ovarian cyst with small amount fluid in the cul-de-sac. surgery consult: see note Spoke with Dr. Piotr de jesus, he will have office call and see patient on Saturday. Will discharge home with some Reglan and Rominayl until seen by liza on Saturday. Results - Additional Comments rounded with christopher all orders per christopher DS: Diagnosis - Discharge Diagnosis (1) Abdominal pain Status: Acute (2) Intractable vomiting Status: Acute (3) Abdominal pain, generalized Status: Acute (4) Bilious vomiting Status: Acute (5) Chronic abdominal pain Status: Acute (6) Diarrhea Status: Acute Discharge Medications Discharge Medications: Home Medications Medication Instructions Recorded Confirmed Type Sertraline HCl [Zoloft 50mg tablet] 75 mg PO DAILY 04/16/18 04/17/18 History cloNIDine HCl [cloNIDine 0.1mg 0.1 mg PO HS 04/16/18 04/17/18 History Tablet] Disposition Disposition: Home, Self-Care
[2018-04-18 10:15] LABS: Hepatitis B Core Antibody IgM Negative (Negative); Hepatitis B Surface Antigen Negative (Negative)
[2018-04-18 15:50] LABS: Hepatitis C Antibody 0.1 s/co ratio (0.0-0.9)
== END 2018-04-18 12:56 | disposition home or self-care (01) ==
LOC: 2ND 11:13 → ER 11:13 → 2ND 14:08
PROVIDERS: ADMIT Emergency Medicine; ATTEND Emergency Medicine
CPT/HCPCS: 80074; 96365; 96375; 96376; 99284; G0378; J2405

== ENCOUNTER 2022-12-16 16:31 | Emergency (ER) | payer MEDICAID, SELFPAY ==
[2022-12-16 16:32] VITALS: BP 158/99; PULSE 88; RESP 16; TEMP 36.8; O2SAT 99; BMI 28.3
--- NOTE | 2022-12-16 16:33 | HMH.EDBACK ---
Discharge Plan Disposition Patient Disposition: Home, Self-Care Condition: Good Chief Complaint: PAIN Prescriptions Prescriptions: No Action dicyclomine 10 mg capsule 10 mg PO QID PRN (Reason: cramps) Qty: 60 0RF sertraline 50 mg tablet 75 mg PO DAILY Qty: 135 0RF promethazine 12.5 MG tablet 12.5 mg PO Q8 PRN (Reason: nausea) Qty: 8 0RF clonidine HCl 0.1 MG Tablet 0.1 mg PO HS ondansetron 4 MG tablet,disintegrating 4 mg PO QIDP PRN (Reason: Nausea) Qty: 20 0RF Rx Instructions: Referrals Follow up/Referrals: Lauri Lazo MD [Primary Care Provider] - See instructions Activity Restrictions/Add. Instructions Additional Instructions/Restrictions: Follow-up with your primary care doctor in about 2 to 3 days if you do not improve. Your x-rays today did not show any evidence of fracture or dislocation. You can take ibuprofen and/or Tylenol for your pain as needed. Return to the emergency department if you feel worse in any way. Clinical Impressions Clinical Impression: Sprain of right thumb, Acute thigh pain Instructions Patient Instructions: DI for Acute Pain -- Adult Discharge ED Provider: Inocencio Gonzalez Back Pain HPI General Chief Complaint: PAIN Stated Complaint: Left leg pain ,right thumb pain Time Seen by Provider: 12/16/22 16:33 History of Present Illness HPI Narrative: The patient presents to the emergency department complaining of left thigh pain since yesterday and an injury to the right thumb. She states that she has had a spiral/hairline fracture of her left femur about 5 years ago that felt the same as the pain she is feeling today. She denies any injuries to her leg. Related Data Home Medications Medication Instructions Recorded Confirmed clonidine HCl 0.1 mg tablet 0.1 mg PO HS Hypertension 04/16/18 04/24/18 Previous Rx's Medication Instructions Recorded ondansetron 4 mg disintegrating 4 mg PO QIDP PRN Nausea ##20 04/17/18 tablet promethazine 12.5 mg tablet 12.5 mg PO Q8 PRN nausea #8 tabs 04/18/18 dicyclomine 10 mg capsule 10 mg PO QID PRN cramps #60 caps 06/10/18 sertraline 50 mg tablet 75 mg PO DAILY MOOD #135 tabs 08/06/18 Allergies Allergy/AdvReac Type Severity Reaction Status Date / Time Penicillins [PENICILLINS] Allergy Unknown Verified 05/06/18 11:50 [facility] Disclaimer: The information contained in this section may have been updated after the patient was seen, as this information can be updated by other users. Medical History (Updated 12/16/22 @ 17:49 by Inocencio Gonzalez MD) Abdominal pain Hypertension Social History Smoking Status: Current every day smoker tobacco type: cigarettes packs per day: 1 second hand exposure: No alcohol intake: never substance use type: denies use current occupational status: employed Travel in the last 8 weeks: None household members: family housing: house current occupation: [employer] current occupational exposures/hazards: No caffeine: Yes ROS Obtained: Yes All systems reviewed & no additional complaints except as documented Physical Exam General General appearance: alert Head Head exam: atraumatic Eye Eye exam: Present normal appearance; Absent scleral icterus ENT ENT exam: Present normal exam Neck Neck exam: Present normal inspection and full ROM; Absent tenderness or meningismus Chest Chest inspection: Present normal inspection and symmetric chest wall rise; Absent tenderness Respiratory Respiratory exam: Present normal lung sounds bilaterally; Absent respiratory distress or accessory muscle use Cardiovascular Cardiovascular exam: Present regular rate, normal rhythm and normal heart sounds Abdominal Exam Abdominal exam: Present soft and normal bowel sounds; Absent distention, tenderness, heel tap sign, Mcgrath's sign, Rovsing's sign, tenderness at McBurney's Point or mass Extremities Exam Extremities exam: Present normal inspection, ful
--- NOTE | 2022-12-16 16:43 | XR_ITS ---
PROCEDURE INFORMATION: Exam: XR Left Femur Exam date and time: 12/16/2022 4:48 PM Age: 42 years old Clinical indication: Pain; Thigh; Left; Additional info: Left femur/thigh pain TECHNIQUE: Imaging protocol: Radiologic exam of the Left femur. Views: 2 views. COMPARISON: CR FEML2 [id number]-LT-2 VIEWS 10/23/2017 9:40 AM FINDINGS: Bones/joints: Unremarkable. No acute fracture. Soft tissues: Unremarkable. IMPRESSION: No acute findings.
--- NOTE | 2022-12-16 16:43 | XR_ITS ---
PROCEDURE INFORMATION: Exam: XR Right Finger(s) Exam date and time: 12/16/2022 4:43 PM Age: 42 years old Clinical indication: Injury or trauma; Other: Jammed right thumb a couple weeks ago. Blunt trauma (contusions or hematomas); Finger; Patient HX: Jammed right thumb a couple weeks ago patient stated. ; Additional info: RT thumb injury TECHNIQUE: Imaging protocol: Radiologic exam of the Right fingers. Views: Minimum 2 views. COMPARISON: No relevant prior studies available. FINDINGS: Bones/joints: Normal. Soft tissues: Normal. IMPRESSION: No acute findings.
[2022-12-16 17:22] VITALS: BP 139/89; PULSE 82; RESP 18; O2SAT 96
[2022-12-16 18:08] VITALS: BP 139/89; PULSE 82; RESP 18; TEMP 36.8; O2SAT 96
== END 2022-12-16 18:10 | disposition home or self-care (01) ==
PROVIDERS: Emergency Provider Emergency Medicine; PCP Internal Medicine Adolescent Medicine
DX: S63.601A Unspecified sprain of right thumb, initial encounter (principal); M79.652 Pain in left thigh; F17.210 Nicotine dependence, cigarettes, uncomplicated; I10 Essential (primary) hypertension; X58.XXXA Exposure to other specified factors, initial encounter
CPT/HCPCS: 73140; 73552; 99284

== ENCOUNTER → 2022-12-24 07:56 | Outpatient (CLI) | payer MEDICAID, SELFPAY ==
--- NOTE | 2022-12-24 08:02 | XR_ITS ---
FINAL REPORT CLINICAL HISTORY: URINARY INCONTINENCE, PARESTHESIA. C/o leg pain x 2 wks, NKT FINDINGS: AP, lateral, and oblique views of the lumbar spine were obtained. There is no acute fracture or acute malalignment. Vertebral body height is preserved. There is mild degenerative disease most pronounced at the thoracolumbar junction. No acute paraspinal abnormality is identified. 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 Reviewed, Interpreted and Dictated by Ana Price MD Transcribed by Dahlia Carlson Authenticated and . [facility]
== END ==
PROVIDERS: PCP Nurse Practitioner Family; Visit Provider Nurse Practitioner Family
DX: R20.2 Paresthesia of skin (principal); R32 Unspecified urinary incontinence
CPT/HCPCS: 72110

== ENCOUNTER 2022-12-26 10:07 | Emergency (ER) | payer MEDICAID, SELFPAY ==
--- NOTE | 2022-12-26 10:18 | EXP.UTC ---
Discharge Plan Disposition Patient Disposition: Home, Self-Care Condition: Good Prescriptions Prescriptions: New benzonatate [benzonatate] 100 mg capsule 100 mg PO TIDP PRN (Reason: Cough) Qty: 30 0RF methylprednisolone 4 mg Tablets,Dose Pack 4 mg PO DIRECTED Qty: 21 0RF azithromycin [Zithromax] 250 mg tablet 250 mg PO UD DOSE PK Qty: 6 0RF Rx Instructions: Take two (2) tablets today, then one (1) tablet days #2 thru #5 No Action dicyclomine 10 mg capsule 10 mg PO QID PRN (Reason: cramps) Qty: 60 0RF sertraline 50 mg tablet 75 mg PO DAILY Qty: 135 0RF promethazine 12.5 MG tablet 12.5 mg PO Q8 PRN (Reason: nausea) Qty: 8 0RF clonidine HCl 0.1 MG tablet 0.1 mg PO HS ondansetron 4 MG tablet,disintegrating 4 mg PO QIDP PRN (Reason: Nausea) Qty: 20 0RF Rx Instructions: Referrals Follow up/Referrals: Lauri Lazo MD [Primary Care Provider] - See instructions Activity Restrictions/Add. Instructions Additional Instructions/Restrictions: Drink plenty of fluids. Take tylenol or ibuprofen for pain or fever. Take the medications as directed. Follow up with your regular doctor. GO TO THE ER FOR ANY WORSENING SYMPTOMS Clinical Impressions Clinical Impression: Pharyngitis, Sinusitis Stand Alone Forms Stand Alone Forms: Work/School Release Instructions Patient Instructions: DI for Pharyngitis/Tonsillopharyngitis -- Adult, DI for Sinusitis, DI for Viral Syndrome Discharge ED Provider: Jose Shipley [facility] General Stated complaint: Fever sore throat congestion nausea Time Seen by Provider: 12/26/22 10:18 History of Present Illness Provider Complaint: She states that for the past 2 days she has had sinus congestion, sinus pressure, and sore throat. Related Data Home Medications Medication Instructions Recorded Confirmed clonidine HCl 0.1 mg tablet 0.1 mg PO HS Hypertension 04/16/18 04/24/18 Previous Rx's Medication Instructions Recorded ondansetron 4 mg disintegrating 4 mg PO QIDP PRN Nausea ##20 04/17/18 tablet promethazine 12.5 mg tablet 12.5 mg PO Q8 PRN nausea #8 tabs 04/18/18 dicyclomine 10 mg capsule 10 mg PO QID PRN cramps #60 caps 06/10/18 sertraline 50 mg tablet 75 mg PO DAILY MOOD #135 tabs 08/06/18 azithromycin 250 mg tablet 250 mg PO UD DOSE PK #6 tabs 12/26/22 (Zithromax) benzonatate 100 mg capsule 100 mg PO TIDP PRN Cough #30 caps 12/26/22 methylprednisolone 4 mg tablets in 4 mg PO DIRECTED #21 tabs 12/26/22 a dose pack Allergies Allergy/AdvReac Type Severity Reaction Status Date / Time Penicillins [PENICILLINS] Allergy Unknown Verified 12/26/22 10:57 [facility] Disclaimer: The information contained in this section may have been updated after the patient was seen, as this information can be updated by other users. Medical History Abdominal pain Hypertension Social History Smoking Status: Current every day smoker tobacco type: cigarettes packs per day: 1 second hand exposure: No alcohol intake: never substance use type: denies use current occupational status: employed Travel in the last 8 weeks: None household members: family housing: house current occupation: [employer] current occupational exposures/hazards: No caffeine: Yes ROS Obtained: Yes All systems reviewed & no additional complaints except as documented Constitutional Constitutional: Reports chills and Reports fever(s) Eyes Eyes: Denies eye discharge ENT Ears, Nose, Mouth, and Throat: Reports as per HPI Cardiovascular Cardiovascular: Denies chest pain Respiratory Respiratory: Denies chest congestion and Reports cough Gastrointestinal Gastrointestingal: Reports nausea; Denies abdominal pain, constipation, cramping, diarrhea or vomiting Musculoskeletal Musculoskeletal: Denies arthralgias In
[2022-12-26 10:30] VITALS: BP 145/83; PULSE 98; RESP 20; TEMP 38.1; O2SAT 96; BMI 29.5
[2022-12-26 10:36] LABS: UTC Strep Screen (Rapid) Negative (Negative)
[2022-12-26 11:27] VITALS: BP 145/83; PULSE 98; RESP 20; TEMP 38.1; O2SAT 96
== END 2022-12-26 11:26 | disposition home or self-care (01) ==
PROVIDERS: Emergency Provider Nurse Practitioner Family; PCP Internal Medicine Adolescent Medicine
DX: J02.9 Acute pharyngitis, unspecified (principal); J32.9 Chronic sinusitis, unspecified
CPT/HCPCS: 87880; 99212; 99213; C9803; G0463; U0003; U0005

== ENCOUNTER → 2023-01-14 08:05 | Outpatient (CLI) | payer MEDICAID, SELFPAY ==
--- NOTE | 2023-01-14 08:10 | XR_ITS ---
FINAL REPORT CLINICAL HISTORY: lt hand pain FINDINGS: LEFT HAND Three views demonstrate no acute fracture. There is no dislocation. The visualized joint spaces are normally aligned. The joint spaces are preserved. The soft tissues are unremarkable. IMPRESSION: No acute bony abnormality. Reviewed, Interpreted and Dictated by Ignacio Calhoun III, MD Transcribed by Dahlia Carlson Authenticated and [facility]
--- NOTE | 2023-01-14 08:10 | XR_ITS ---
FINAL REPORT CLINICAL HISTORY: rt hand pain FINDINGS: RIGHT HAND Three views demonstrate no acute fracture. There is no dislocation. The visualized joint spaces are normally aligned. The joint spaces are preserved. The soft tissues are unremarkable. IMPRESSION: No acute bony abnormality. Reviewed, Interpreted and Dictated by Ignacio Calhoun III, MD Transcribed by Dahlia Carlson Authenticated and [facility]
== END ==
PROVIDERS: PCP Nurse Practitioner Family; Visit Provider Orthopaedic Surgery
DX: M79.642 Pain in left hand (principal); M79.641 Pain in right hand
CPT/HCPCS: 73130

== ENCOUNTER → 2023-02-26 09:08 | Outpatient (CLI) | payer MEDICAID, SELFPAY ==
--- NOTE | 2023-02-26 09:17 | ECG_ITS ---
APPROVED REPORT Exam: Resting ECG HR:62 bpm ECG Measurements Heart Rate 62 AXES KS 131 P 69 QRSd 83 QRS 54 QT 403 T 36 QTc 408 Conclusion SINUS RHYTHM NORMAL ECG UNCONFIRMED REPORT Electronically signed by : Lauri Lazo MD 03/01/2023 14:34:22
--- NOTE | 2023-02-26 09:27 | XR_ITS ---
FINAL REPORT TECHNIQUE: Chest PA & Lateral CLINICAL HISTORY: pre op..smoker COMPARISON: April 2017 FINDINGS: 2 views of the chest were performed. The heart size is normal. The mediastinum is within normal limits. There is no acute cardiopulmonary process. There are no pleural effusions. There is no pneumothorax. The bony thorax appears intact. IMPRESSION: No acute cardiopulmonary process. Reviewed, Interpreted and Dictated by Ignacio Calhoun III, MD Transcribed by Moise Avery Authenticated and [facility]
[2023-02-26 09:44] LABS: Basophils # 0.1 K/mm3 (0-0.2); Basophils % 0.7 % (0.1-2.0); Eosinophils # 0.2 K/mm3 (0.0-0.4); Eosinophils % 2.9 % (0.1-12.0); Hematocrit 42.7 % (37.0-47.0); Lymphocytes # 2.8 K/mm3 (0.7-4.5); Lymphocytes % 37.7 % (10-50); Mean Corpuscular HGB Conc 32.8 g/dL (31.8-35.4); Mean Corpuscular Volume 91.7 fl (81-99); Mean Platelet Volume 8.5 fl (7.4-10.4); Monocytes # 0.4 K/mm3 (0.1-1.0); Monocytes % 5.5 % (1.7-9.3); Neutrophils % 53.2 % (37.0-80.0); Platelet Count 285 K/mm3 (142-424); Red Blood Count 4.66 M/mm3 (4.20-5.40); Red Cell Distribution Width 13.5 % (11.5-17.5); White Blood Count 7.5 K/mm3 (4.8-10.8)
[2023-02-26 09:52] LABS: Chloride 104 mmol/L (98-107); Potassium 3.9 mmoL/L (3.5-5.1); Sodium 140 mmol/L (136-145)
[2023-02-26 09:54] LABS: Blood Urea Nitrogen 12 mg/dl (7-17); Estimated Glomerular Filt Rate 135 ml/min (>60); GFR (African American) 163 ML/MIN (>60)
[2023-02-26 09:55] LABS: Alanine Aminotransferase 18 U/L (12-78); Albumin Level 3.7 g/dl (3.5-5.0); Albumin/Globulin Ratio 1.6 (1.1-1.8); Alkaline Phosphatase 54 U/L (38-126); Anion Gap 8.9 mEq/L (5-15); Aspartate Amino Transferase 25 U/L (14-36); Bilirubin,Total 0.8 mg/dl (0.2-1.3); Calcium 8.7 mg/dl (8.4-10.2); Carbon Dioxide 31 mmol/L (22.0-30.0); Globulin 2.3 g/dL (1.3-3.2); Glucose 89 mg/dl (74-100)
== END ==
PROVIDERS: PCP Nurse Practitioner Family; Visit Provider Orthopaedic Surgery
DX: Z01.818 Encounter for other preprocedural examination (principal); G56.01 Carpal tunnel syndrome, right upper limb
CPT/HCPCS: 36415; 71046; 80053; 85025; 93005

== ENCOUNTER 2023-03-13 06:02 | Day surgery (SDC) | payer MEDICAID, SELFPAY ==
[2023-03-12 13:08] VITALS: BMI 28.3
[2023-03-13] VITALS (11 sets, daily range): BP systolic 92–145; BP diastolic 53–94; PULSE 63–74; RESP 12–18; TEMP 36.1–36.6; O2SAT 94–100
[2023-03-13 06:37] LABS: Urine Pregnancy, HCG Qual. Negative (Negative)
--- NOTE | 2023-03-13 06:59 | P.PN_ITS ---
[facility] Disclaimer: The information contained in this section may have been updated after the patient was seen, as this information can be updated by other users. Medical History Abdominal pain Anxiety Depression Hypertension Hypothyroid Irritable bowel syndrome (IBS) Kidney stone Urinary incontinence Urinary tract infection Surgical History Hx of appendectomy Hx of cholecystectomy Hx of foot surgery Family History Other Family history of cancer Family history of diabetes mellitus type II Family history of myocardial infarction Hypertension Stroke Social History Smoking Status: Current every day smoker tobacco type: cigarettes packs per day: 1 and e-cigarettes second hand exposure: No alcohol intake: never substance use type: denies use current occupational status: employed Travel in the last 8 weeks: None household members: family housing: house current occupation: [employer] current occupational exposures/hazards: No caffeine: Yes [facility] Anesthesia Checklist Patient Identification Patient Identification: Arm Band and Verbal (Name & ) Structural Data Admitted From: Home Planned Operative Procedure/s: Carpal tunnel release Consent for Planned Operative Procedure(s) Verified: Yes NPO Status Verified Time NPO: 00:00 Chart Verification Results Verified: HCG Additional verifications Anesthesia Reactions: No Hx Blood Transfusions: No Blood Transfusion Reaction: No Airway Assessment C-Spine Mobility Assessed: Yes TMJ Mobility Assessed: Yes Dentition: Dentures-good fit Neurological Assessment Level of Consciousness: Awake Hx Seizures: No Numbness or tingling in extremities: No Anesthesia Plan Anesthesia Risk discussed: Yes Anesthesia Plan: Verified ASA Class: II Anesthesia Type: MAC
--- NOTE | 2023-03-13 08:02 | EXP.OP.NOTE ---
Date of procedure: 03/13/23 Pre-op Diagnosis:: Right carpal tunnel syndrome Post-op Diagnosis:: Same Procedure performed:: Right endoscopic carpal tunnel release Surgeon:: Saman Eller DO ACADEMIC HOSPITALIST:: Paul Liao Anesthesia: MAC and local Estimated blood loss (mL): 0 Operative findings:: See dictation Operative note:: Patient is identified preoperatively. Right wrist marked with yes and my initials. Transferred operative suite. Placed upon the operating bed with a hand table. Right upper extremity prepped and draped in normal sterile fashion. Once prepped and draped final operative timeout performed to identify proper patient procedure and extremity. Everyone involved in the case agreed. There is no counter indications beginning. She did receive preoperative antibiotics with clindamycin. Patient is given sedation local anesthesia was infiltrated into the incision site Esmarch was used to exsanguinate extremity pneumatic tourniquet inflated to 250 mmHg. Skin knife is used to incise the skin. Blunt dissection with scissors taken down to identify the most proximal aspect of transverse carpal ligament. Retractors were placed and the dilator was placed into the carpal tunnel followed by the sled for the girma Sheffield endoscopic carpal tunnel release kit the right sided sled was placed. Camera was then placed into the carpal tunnel transverse carpal ligament was clearly seen superiorly in the picture. Probe was used to probe the end of the transverse carpal ligament a rasp was used to remove the soft tissue from the transverse carpal ligament undersurface. And the hook knife was used to release the transverse carpal ligament and this was released completely and visualized on the camera. Once completely released this lead was moved copious irrigation wound performed skin closed with nylon stitch sterile hand dressing placed patient waken from sedation taken recovery in stable condition. Condition: stable Disposition: PACU Complications:: None apparent
--- NOTE | 2023-03-13 08:10 | EXP.ANES.I ---
[facility] Anesthesia Record Part I Anesthesia Record I Intake, IV Amount: 900 Estimated blood loss (mL): 0 Urine output (mL): 0 Blood Pressure: 124/94 SaO2: 94 Pulse Rate: 70 Respiratory Rate: 12 Temperature: 97 F Patient is:: Awake and Stable Stable to PACU at:: 08:10
--- NOTE | 2023-03-13 09:22 | EXP.ANES.II ---
[facility] Anesthesia Record Part II Anesthesia Record Part II Discharge Time: 08:40 Destination: Surgical Day Care (OP Surgery) PACU nurse assessment reviewed?: Yes Patient Condition:: Good Anesthesia Complications:: None Swallowing reflex intact?: Yes Cyanosis?: No Blood Pressure: 119/76 Pulse Rate: 66 Temperature: 97 F Mental Status: Alert & Oriented Pain level:: 0 Nausea and/or vomitting:: None Intake, IV Amount: 0
--- NOTE | 2023-03-13 09:46 | P.PNANES_ITS ---
[facility] Anesthesia Record Part I Anesthesia Record I Intake, IV Amount: 1,500 Estimated blood loss (mL): 0 Urine output (mL): 0 Blood Pressure: 92/53 SaO2: 96 Pulse Rate: 74 Respiratory Rate: 12 Temperature: 98 F Patient is:: Awake and Stable Stable to PACU at:: 09:45
== END 2023-03-13 09:11 | disposition home or self-care (01) ==
PROVIDERS: PCP Nurse Practitioner Family; Visit Provider Orthopaedic Surgery
PROC: (CPT 64721; principal; 2023-03-13 07:30)
DX: G56.01 Carpal tunnel syndrome, right upper limb (principal)
CPT/HCPCS: 64721; 81025; 96374; J2405

== ENCOUNTER 2023-06-18 14:13 | Emergency (ER) | payer MEDICAID, SELFPAY ==
[2023-06-18 14:13] VITALS: BP 150/110; PULSE 104; RESP 16; TEMP 36.7; O2SAT 98; BMI 27.4
--- NOTE | 2023-06-18 14:25 | EXP.UTC ---
Discharge Plan Disposition Patient Disposition: Home, Self-Care Condition: Good Prescriptions Prescriptions: New prednisone [prednisone] 20 mg tablet 20 mg PO DAILY 5 Days Qty: 5 0RF ondansetron 4 mg Tablet,Disintegrating 4 mg PO Q8H PRN (Reason: Nausea) Qty: 12 0RF lidocaine HCl [Lidocaine Viscous] 2 % solution 1 applic mucous membrane QID PRN (Reason: mouth pain) Qty: 100 0RF No Action duloxetine 30 mg capsule,delayed release(DR/EC) 30 mg PO DAILY buspirone 10 mg tablet 10 mg PO BID buprenorphine-naloxone 8-2 mg tablet, sublingual 1 tab sublingual DAILY levothyroxine 50 mcg tablet 50 mcg PO DAILY metronidazole 500 mg tablet 500 mg PO BID 14 Days Qty: 28 0RF azithromycin 250 mg tablet See Rx Instructions PO .COMPLEX Qty: 6 0RF Rx Instructions: For 250 mg dose pack: take day 1 4 tablets), then 2 tablets day 2 PO metronidazole 500 mg tablet 500 mg PO BID Qty: 28 0RF ibuprofen 800 mg tablet 800 mg PO Q6H PRN (Reason: post op pain) Qty: 40 0RF cyclobenzaprine 10 mg tablet 10 mg PO TID PRN (Reason: muscle spasm) Qty: 30 0RF Referrals Follow up/Referrals: Renetta Chowdary APRN [Primary Care Provider] - See instructions Activity Restrictions/Add. Instructions Additional Instructions/Restrictions: Drink plenty of fluids. Take tylenol or ibuprofen for pain' Take the zofran (ondesetron) for nausea and vomiting. Apply the viscous lidocaine to the ulcers in your mouth as directed for pain. Take the prednisone as directed. Follow up with your regular doctor. GO TO THE ER FOR ANY WORSENING SYMPTOMS Clinical Impressions Clinical Impression: Aphthous ulceration, Nausea & vomiting Stand Alone Forms Stand Alone Forms: Work/School Release Instructions Patient Instructions: Aphthous Ulcers, DI for Aphthous Ulcers (Canker Sores) Discharge ED Provider: Jose Shipley [facility] [place], [place] HPI General Stated complaint: white spots in gums, vomiting Time Seen by Provider: 06/18/23 14:25 History of Present Illness Provider Complaint: She states that for the past 1 week she has had whitish sore areas in her mouth. She also states that she has had n/v since this morning. She denies any abdominal pain. Related Data Home Medications Medication Instructions Recorded Confirmed buprenorphine 8 mg-naloxone 2 mg 1 tab sublingual DAILY substance 01/23/23 04/11/23 sublingual tablet abuse buspirone 10 mg tablet 10 mg PO BID Anxiety 01/23/23 04/11/23 duloxetine 30 mg capsule,delayed 30 mg PO DAILY . 01/23/23 04/11/23 release levothyroxine 50 mcg tablet 50 mcg PO DAILY thyroid 01/23/23 04/11/23 Previous Rx's Medication Instructions Recorded cyclobenzaprine 10 mg tablet 10 mg PO TID PRN muscle spasm #30 03/13/23 tabs ibuprofen 800 mg tablet 800 mg PO Q6H PRN post op pain #40 03/13/23 tabs metronidazole 500 mg tablet 500 mg PO BID 14 days #28 tabs 04/11/23 azithromycin 250 mg tablet See Rx Instructions PO .COMPLEX #6 04/23/23 tabs metronidazole 500 mg tablet 500 mg PO BID #28 tabs 04/23/23 lidocaine HCl 2 % mucosal solution 1 applic mucous membrane QID PRN 06/18/23 (Lidocaine Viscous) mouth pain #100 mL ondansetron 4 mg disintegrating 4 mg PO Q8H PRN Nausea #12 tabs 06/18/23 tablet prednisone 20 mg tablet 20 mg PO DAILY 5 days #5 tabs 06/18/23 Allergies Allergy/AdvReac Type Severity Reaction Status Date / Time Penicillins [PENICILLINS] Allergy Unknown Verified 04/11/23 11:18 [facility] Disclaimer: The information contained in this section may have been updated after the patient was seen, as this information can be updated by other users. Medical History (Updated 06/18/23 @ 14:48 by Jose Shipley APRN) Abdominal pain Anxiety Depression Hypertension Hypothyroid Irritable bowel syndrome (IBS) Kidney stone Urinary incontinence Urinary tract infection Surgical History (Updated 04/11/23 @ 11:24 by Josiah Mujica
[2023-06-18 14:53] VITALS: BP 150/110; PULSE 104; RESP 16; TEMP 36.7; O2SAT 98
== END 2023-06-18 14:54 | disposition home or self-care (01) ==
PROVIDERS: Emergency Provider Nurse Practitioner Family; PCP Nurse Practitioner Family
DX: R11.2 Nausea with vomiting, unspecified (principal); K12.30 Oral mucositis (ulcerative), unspecified; F17.210 Nicotine dependence, cigarettes, uncomplicated; I10 Essential (primary) hypertension; E03.9 Hypothyroidism, unspecified; F41.9 Anxiety disorder, unspecified; F32.A Depression, unspecified
CPT/HCPCS: 99212; 99214; G0463

== ENCOUNTER 2023-07-01 14:17 | Emergency (ER) | payer MEDICAID, SELFPAY ==
[2023-07-01 14:19] VITALS: BP 154/97; PULSE 69; RESP 18; TEMP 36.7; O2SAT 96; BMI 28.3
--- NOTE | 2023-07-01 14:28 | EXP.UTC ---
Discharge Plan Disposition Patient Disposition: Home, Self-Care Condition: Good Prescriptions Prescriptions: New azithromycin [Zithromax] 250 mg tablet 250 mg PO UD DOSE PK Qty: 6 0RF Rx Instructions: Take two (2) tablets today, then one (1) tablet days #2 thru #5 benzonatate [benzonatate] 100 mg capsule 100 mg PO TIDP PRN (Reason: Cough) Qty: 30 0RF ondansetron 4 mg Tablet,Disintegrating 4 mg PO Q8H PRN (Reason: Nausea) Qty: 12 0RF No Action duloxetine 30 mg capsule,delayed release(DR/EC) 30 mg PO DAILY buspirone 10 mg tablet 10 mg PO BID buprenorphine-naloxone 8-2 mg tablet, sublingual 1 tab sublingual DAILY levothyroxine 50 mcg tablet 50 mcg PO DAILY metronidazole 500 mg tablet 500 mg PO BID 14 Days Qty: 28 0RF azithromycin 250 mg tablet See Rx Instructions PO .COMPLEX Qty: 6 0RF Rx Instructions: For 250 mg dose pack: take day 1 4 tablets), then 2 tablets day 2 PO metronidazole 500 mg tablet 500 mg PO BID Qty: 28 0RF ibuprofen 800 mg tablet 800 mg PO Q6H PRN (Reason: post op pain) Qty: 40 0RF cyclobenzaprine 10 mg tablet 10 mg PO TID PRN (Reason: muscle spasm) Qty: 30 0RF prednisone [prednisone] 20 mg tablet 20 mg PO DAILY 5 Days Qty: 5 0RF ondansetron 4 mg Tablet,Disintegrating 4 mg PO Q8H PRN (Reason: Nausea) Qty: 12 0RF lidocaine HCl [Lidocaine Viscous] 2 % solution 1 applic mucous membrane QID PRN (Reason: mouth pain) Qty: 100 0RF Referrals Follow up/Referrals: Lauri Lazo MD [Primary Care Provider] - See instructions Activity Restrictions/Add. Instructions Additional Instructions/Restrictions: Drink plenty of fluids. Take tylenol or ibuprofen for pain or fever. Take the medications as directed. Follow up with your regular doctor. GO TO THE ER FOR ANY WORSENING SYMPTOMS Clinical Impressions Clinical Impression: Sinusitis, Acute viral syndrome Stand Alone Forms Stand Alone Forms: Work/School Release Instructions Patient Instructions: DI for Sinusitis, DI for Viral Syndrome Discharge ED Provider: Jose Shipley [facility] General Stated complaint: vomiting, Diarrhea, WASHBURN and runny nose Time Seen by Provider: 07/01/23 14:28 History of Present Illness Provider Complaint: She states that for the past 2 days she has had a sore throat, sinus congestion, very runny nose and low grade fever. Related Data Home Medications Medication Instructions Recorded Confirmed buprenorphine 8 mg-naloxone 2 mg 1 tab sublingual DAILY substance 01/23/23 04/11/23 sublingual tablet abuse buspirone 10 mg tablet 10 mg PO BID Anxiety 01/23/23 04/11/23 duloxetine 30 mg capsule,delayed 30 mg PO DAILY . 01/23/23 04/11/23 release levothyroxine 50 mcg tablet 50 mcg PO DAILY thyroid 01/23/23 04/11/23 Previous Rx's Medication Instructions Recorded cyclobenzaprine 10 mg tablet 10 mg PO TID PRN muscle spasm #30 03/13/23 tabs ibuprofen 800 mg tablet 800 mg PO Q6H PRN post op pain #40 03/13/23 tabs metronidazole 500 mg tablet 500 mg PO BID 14 days #28 tabs 04/11/23 azithromycin 250 mg tablet See Rx Instructions PO .COMPLEX #6 04/23/23 tabs metronidazole 500 mg tablet 500 mg PO BID #28 tabs 04/23/23 lidocaine HCl 2 % mucosal solution 1 applic mucous membrane QID PRN 06/18/23 (Lidocaine Viscous) mouth pain #100 mL ondansetron 4 mg disintegrating 4 mg PO Q8H PRN Nausea #12 tabs 06/18/23 tablet prednisone 20 mg tablet 20 mg PO DAILY 5 days #5 tabs 06/18/23 azithromycin 250 mg tablet 250 mg PO UD DOSE PK #6 tabs 07/01/23 (Zithromax) benzonatate 100 mg capsule 100 mg PO TIDP PRN Cough #30 caps 07/01/23 ondansetron 4 mg disintegrating 4 mg PO Q8H PRN Nausea #12 tabs 07/01/23 tablet Allergies Allergy/AdvReac Type Severity Reaction Status Date / Time Penicillins [PENICILLINS] Allergy Unknown Verified 04/11/23 11:18 [facility] Disclaimer: The information contained in this section m
[2023-07-01 15:20] VITALS: BP 154/97; PULSE 69; RESP 18; TEMP 36.7; O2SAT 96
== END 2023-07-01 15:20 | disposition home or self-care (01) ==
PROVIDERS: Emergency Provider Nurse Practitioner Family; PCP Internal Medicine Adolescent Medicine
DX: J01.90 Acute sinusitis, unspecified (principal); J02.9 Acute pharyngitis, unspecified; R50.9 Fever, unspecified; F17.210 Nicotine dependence, cigarettes, uncomplicated; I10 Essential (primary) hypertension; E03.9 Hypothyroidism, unspecified; F41.9 Anxiety disorder, unspecified; F32.A Depression, unspecified
CPT/HCPCS: 99212; 99214; G0463

== ENCOUNTER 2023-08-19 08:42 | Emergency (ER) | payer MEDICAID, SELFPAY ==
[2023-08-19 08:44] VITALS: BP 152/104; PULSE 88; RESP 18; TEMP 36.6; O2SAT 100; BMI 25.7
--- OUTSIDE RECORDS SUMMARY | 2023-08-19 08:53 | XMS_ITS | Patient Health Record ---
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 Role Phone Renetta Chowdary Primary Care Provider RENETTA CHOWDARY Unavailable Unavaila ble ALLERGIES Allergen (clinical drug ingredient) Drug/Non Drug Allergy documented on EMR Reaction Allergy Type Onset Date Status penicillin Unknown Drug Allergy Active RESULTS Component Value Reference Range Notes VITAMIN D,25-OH,TOTAL,IA (17 306) Reviewed date:02/02/2023 08:37:29 AM Interpretation: Performing Lab:[facility] [employer] [id number] [id number] [place] Notes/Report: NON-FASTING; NON-FASTING VITAMIN D,25-OH,TOTAL,IA 73 30-100 ng/mL Vitamin D Status 25-OH Vitamin D: Deficiency: <20 ng/mL Insufficiency: 20 - 29 ng/mL Optimal: > or = 30 ng/mL For 25-OH Vitamin D testing on patients on D2-supplementation and patients for whom quantitation of D2 and D3 fractions is required, the QuestAssureD(TM) 25-OH VIT D, (D2,D3), LC/MS/MS is recommended: order code 46478 (patients >2yrs). See Note 1 Note 1 For additional information, please refer to http://education.[employer].com/faq/EFD474 (This link is being provided for informational/ educational purposes only.) TSH W/REFLEX TO FT4 (25188) Reviewed date:02/02/2023 08:37:29 AM Interpretation: Performing Lab:[facility], [id number] [facility] [place] [id number] [place] Pr[place] Notes/Report: NON-FASTING; NON-FASTING TSH W/REFLEX TO FT4 4.25 Reference Range > or = 20 Yea
--- NOTE | 2023-08-19 09:07 | PC.NURSE ---
DR MORENO AT BEDSIDE
--- NOTE | 2023-08-19 09:12 | HMH.EDGENADL ---
Discharge Plan Disposition Patient Disposition: Home, Self-Care Prescriptions Prescriptions: New ondansetron 4 mg tablet,disintegrating 4 mg PO Q8H 3 Days Qty: 9 0RF No Action duloxetine 30 mg capsule,delayed release(DR/EC) 30 mg PO DAILY buspirone 10 mg tablet 10 mg PO BID buprenorphine-naloxone 8-2 mg tablet, sublingual 1 tab sublingual DAILY levothyroxine 50 mcg tablet 50 mcg PO DAILY metronidazole 500 mg tablet 500 mg PO BID 14 Days Qty: 28 0RF azithromycin 250 mg tablet See Rx Instructions PO .COMPLEX Qty: 6 0RF Rx Instructions: For 250 mg dose pack: take day 1 4 tablets), then 2 tablets day 2 PO metronidazole 500 mg tablet 500 mg PO BID Qty: 28 0RF ibuprofen 800 mg tablet 800 mg PO Q6H PRN (Reason: post op pain) Qty: 40 0RF cyclobenzaprine 10 mg tablet 10 mg PO TID PRN (Reason: muscle spasm) Qty: 30 0RF prednisone [prednisone] 20 mg tablet 20 mg PO DAILY 5 Days Qty: 5 0RF ondansetron 4 mg Tablet,Disintegrating 4 mg PO Q8H PRN (Reason: Nausea) Qty: 12 0RF lidocaine HCl [Lidocaine Viscous] 2 % solution 1 applic mucous membrane QID PRN (Reason: mouth pain) Qty: 100 0RF azithromycin [Zithromax] 250 mg tablet 250 mg PO UD DOSE PK Qty: 6 0RF Rx Instructions: Take two (2) tablets today, then one (1) tablet days #2 thru #5 benzonatate [benzonatate] 100 mg capsule 100 mg PO TIDP PRN (Reason: Cough) Qty: 30 0RF ondansetron 4 mg Tablet,Disintegrating 4 mg PO Q8H PRN (Reason: Nausea) Qty: 12 0RF Referrals Follow up/Referrals: Renetta Chowdary APRN [Primary Care Provider] - See instructions Activity Restrictions/Add. Instructions Additional Instructions/Restrictions: At this time is felt you are safe to be discharged home. New or worsening symptoms please do not hesitate to return the emergency department. Please apply your topical antibiotic ointment over open sores 3 times a day for 5 days. Please take your Zofran as prescribed and do not combine with other nausea medications Clinical Impressions Clinical Impression: Acute viral syndrome, Skin sore Discharge ED Provider: Etienne Chen General Adult HPI General Chief complaint: Nausea/Vomiting/Diarrhea Stated complaint: dizzy, vomiting Time Seen by Provider: 08/19/23 08:50 Mode of Arrival: Ambulatory Limitations: No Limitations Description of Symptoms (Recalled from ER Triage Doc. by RN): PT REPORTS NAUSEA, VOMITING AND DIZZINESS SINCE SATURDAY. PT REPORTS SNORTING METH ABOUT 08/10. History of Present Illness HPI narrative: Patient is a 43-year-old female with past medical history of intranasal amphetamine use who presents emergency department for evaluation of vomiting and diarrhea. Onset was acute, occurring Saturday. Nonbloody vomiting with limited ability to tolerate p.o. No significant abdominal pain, cramping that occurs only while retching. No dysuria. Patient has taken a unknown antibiotic and has since developed nonbloody diarrhea. She states that she has lesions on her upper extremities which she has been picking at. No other acute complaints at this time. Related Data Home Medications Medication Instructions Recorded Confirmed buprenorphine 8 mg-naloxone 2 mg 1 tab sublingual DAILY substance 01/23/23 04/11/23 sublingual tablet abuse buspirone 10 mg tablet 10 mg PO BID Anxiety 01/23/23 04/11/23 duloxetine 30 mg capsule,delayed 30 mg PO DAILY . 01/23/23 04/11/23 release levothyroxine 50 mcg tablet 50 mcg PO DAILY thyroid 01/23/23 04/11/23 Previous Rx's Medication Instructions Recorded cyclobenzaprine 10 mg tablet 10 mg PO TID PRN muscle spasm #30 03/13/23 tabs ibuprofen 800 mg tablet 800 mg PO Q6H PRN post op pain #40 03/13/23 tabs metronidazole 500 mg tablet 500 mg PO BID 14 days #28 tabs 04/11/23 azithromycin 250 mg tablet See Rx Instructions PO .COMPLEX #6 04/23/23 tabs metronidazole 500 mg tablet 500 mg PO BID #28 tabs
[2023-08-19 09:26] VITALS: BP 157/101; PULSE 90; O2SAT 100
[2023-08-19 09:30] VITALS: BP 145/89; PULSE 84; O2SAT 100
[2023-08-19 09:36] LABS: Coronavirus 19, PCR Not Detected (NotDetected); Influenza A, PCR Not Detected (NotDetected); Influenza B, PCR Not Detected (NotDetected)
[2023-08-19 09:50] LABS: Basophils # 0.1 K/mm3 (0-0.2); Basophils % 0.7 % (0.1-2.0); Eosinophils # 0.2 K/mm3 (0.0-0.4); Eosinophils % 1.7 % (0.1-12.0); Hematocrit 52.9 % (37.0-47.0); Hemoglobin 17.5 g/dL (12.2-16.2); Lymphocytes # 2.3 K/mm3 (0.7-4.5); Lymphocytes % 25.6 % (10-50); Mean Corpuscular Hemoglobin 29.7 pg (27.0-31.2); Mean Corpuscular Volume 89.9 fl (81-99); Mean Platelet Volume 7.9 fl (7.4-10.4); Monocytes # 0.5 K/mm3 (0.1-1.0); Monocytes % 6.1 % (1.7-9.3); Neutrophils # 5.8 K/mm3 (1.8-7.8); Neutrophils % 65.9 % (37.0-80.0); Platelet Count 293 K/mm3 (142-424); Red Blood Count 5.88 M/mm3 (4.20-5.40); Red Cell Distribution Width 13.4 % (11.5-17.5); White Blood Count 8.8 K/mm3 (4.8-10.8)
[2023-08-19 09:51] LABS: Chloride 99 mmol/L (98-107); Potassium 3.5 mmoL/L (3.5-5.1); Sodium 139 mmol/L (136-145)
[2023-08-19 09:53] LABS: Alanine Aminotransferase 32 U/L (12-78); Alkaline Phosphatase 70 U/L (38-126); Anion Gap 16.5 mEq/L (5-15); Aspartate Amino Transferase 34 U/L (14-36); Bilirubin,Total 0.5 mg/dl (0.2-1.3); Blood Urea Nitrogen 7 mg/dl (7-17); Carbon Dioxide 27 mmol/L (22.0-30.0); Creatinine Clearance Estimated 154 mL/min (50-200); Estimated Glomerular Filt Rate 134 ml/min (>60); GFR (African American) 162 ML/MIN (>60); HCG Qualitative, Serum Negative (Negative); Lipase 63 U/L (23-300)
[2023-08-19 09:54] LABS: Albumin Level 4.4 g/dl (3.5-5.0); Albumin/Globulin Ratio 1.3 (1.1-1.8); Calcium 9.6 mg/dl (8.4-10.2); Globulin 3.4 g/dL (1.3-3.2); Glucose 90 mg/dl (74-100); Magnesium 1.7 mg/dl (1.6-2.3); Total Protein,Serum 7.8 g/dl (6.3-8.2)
[2023-08-19 10:00] VITALS: BP 121/76; BP 135/78; PULSE 73; PULSE 85; RESP 18; TEMP 36.7; O2SAT 98; O2SAT 99
--- NOTE | 2023-08-19 10:04 | PC.NURSE ---
Checked on pt states she was fine and no needs at this time,call light at bs
[2023-08-19 10:30] VITALS: BP 139/88; PULSE 76; O2SAT 96
== END 2023-08-19 10:45 | disposition home or self-care (01) ==
PROVIDERS: Emergency Provider Emergency Medicine; PCP Nurse Practitioner Family
DX: R11.10 Vomiting, unspecified (principal); L98.9 Disorder of the skin and subcutaneous tissue, unspecified; B34.9 Viral infection, unspecified; F15.90 Other stimulant use, unspecified, uncomplicated; F17.210 Nicotine dependence, cigarettes, uncomplicated; I10 Essential (primary) hypertension; E03.9 Hypothyroidism, unspecified; F41.9 Anxiety disorder, unspecified; F32.A Depression, unspecified
CPT/HCPCS: 80053; 83690; 83735; 84703; 85025; 87636; 96361; 96374; 99284; J2405

== ENCOUNTER 2023-10-26 14:59 | Emergency (ER) | payer MEDICAID, SELFPAY ==
[2023-10-26 15:01] VITALS: BP 153/87; PULSE 105; RESP 18; TEMP 36.5; O2SAT 98; BMI 25.7
[2023-10-26 15:07] LABS: Coronavirus 19, PCR Not Detected (NotDetected); Influenza B, PCR Not Detected (NotDetected)
--- NOTE | 2023-10-26 15:37 | PC.NURSE ---
DR TALLEY AT BEDSIDE
[2023-10-26 15:40] LABS: Influenza A, PCR Detected (NotDetected)
--- NOTE | 2023-10-26 15:42 | HMH.EDGENADL ---
Discharge Plan Disposition Patient Disposition: Home, Self-Care Prescriptions Prescriptions: New Xofluza 40 mg tablet 40 mg PO ONCE Qty: 2 0RF ondansetron 4 mg tablet,disintegrating 4 mg PO Q6H PRN (Reason: nausea and vomiting) Qty: 10 0RF No Action duloxetine 30 mg capsule,delayed release(DR/EC) 30 mg PO DAILY buspirone 10 mg tablet 10 mg PO BID buprenorphine-naloxone 8-2 mg tablet, sublingual 1 tab sublingual DAILY levothyroxine 50 mcg tablet 50 mcg PO DAILY metronidazole 500 mg tablet 500 mg PO BID 14 Days Qty: 28 0RF azithromycin 250 mg tablet See Rx Instructions PO .COMPLEX Qty: 6 0RF Rx Instructions: For 250 mg dose pack: take day 1 4 tablets), then 2 tablets day 2 PO metronidazole 500 mg tablet 500 mg PO BID Qty: 28 0RF ibuprofen 800 mg tablet 800 mg PO Q6H PRN (Reason: post op pain) Qty: 40 0RF cyclobenzaprine 10 mg tablet 10 mg PO TID PRN (Reason: muscle spasm) Qty: 30 0RF prednisone [prednisone] 20 mg tablet 20 mg PO DAILY 5 Days Qty: 5 0RF ondansetron 4 mg Tablet,Disintegrating 4 mg PO Q8H PRN (Reason: Nausea) Qty: 12 0RF lidocaine HCl [Lidocaine Viscous] 2 % solution 1 applic mucous membrane QID PRN (Reason: mouth pain) Qty: 100 0RF azithromycin [Zithromax] 250 mg tablet 250 mg PO UD DOSE PK Qty: 6 0RF Rx Instructions: Take two (2) tablets today, then one (1) tablet days #2 thru #5 benzonatate [benzonatate] 100 mg capsule 100 mg PO TIDP PRN (Reason: Cough) Qty: 30 0RF ondansetron 4 mg Tablet,Disintegrating 4 mg PO Q8H PRN (Reason: Nausea) Qty: 12 0RF ondansetron 4 mg tablet,disintegrating 4 mg PO Q8H 3 Days Qty: 9 0RF Referrals Follow up/Referrals: Lauri Lazo MD [Primary Care Provider] - See instructions Activity Restrictions/Add. Instructions Additional Instructions/Restrictions: Call your family doctor to establish care for this visit to the emergency department and schedule follow-up within 48 hours to ensure improvement. If you have any worsening of your condition or any other concerning signs or symptoms, return to the emergency department or your primary care doctor for further evaluation. Xofluza sent to pharmacy, take 1 dose of 40 mg (2 tabs). Zofran sent to pharmacy for nausea and vomiting. Clinical Impressions Clinical Impression: Influenza A, Vomiting, Myalgia Discharge ED Provider: Jose Enrique Martin General Adult HPI General Chief complaint: Upper Respiratory Infection Stated complaint: nauseous, chills, pain in hips Time Seen by Provider: 10/26/23 15:11 Mode of Arrival: Ambulatory Limitations: No Limitations Description of Symptoms (Recalled from ER Triage Doc. by RN): PT C/O VOMITING THAT STARTED LAST NIGHT, LAST EPISODE 1130 TODAY. REPORTS BOYFRIEND HAS FLU A/B. REPORTS COUGH AND BODYACHES History of Present Illness HPI narrative: 43-year-old female presenting with vomiting and bodyaches. Patient has flu A/B. He started having symptoms a few days prior to arrival, patient started yesterday. Has been taking acetaminophen, ibuprofen, Aleve, these have seemed to help. No objective fevers. No diarrhea. Patient states the vomit is nonbilious, nonbloody and associated with p.o. intake. Able to tolerate most liquid, but basically 0 solid p.o. intake. Related Data Home Medications Medication Instructions Recorded Confirmed buprenorphine 8 mg-naloxone 2 mg 1 tab sublingual DAILY substance 01/23/23 04/11/23 sublingual tablet abuse buspirone 10 mg tablet 10 mg PO BID Anxiety 01/23/23 04/11/23 duloxetine 30 mg capsule,delayed 30 mg PO DAILY . 01/23/23 04/11/23 release levothyroxine 50 mcg tablet 50 mcg PO DAILY thyroid 01/23/23 04/11/23 Previous Rx's Medication Instructions Recorded cyclobenzaprine 10 mg tablet 10 mg PO TID PRN muscle spasm #30 03/13/23 tabs ibuprofen 800 mg tablet 800 mg PO Q6H PRN post op pain #40 03/13/23 tabs metronidazole 500
[2023-10-26 15:55] VITALS: BP 118/86; PULSE 89; RESP 18; TEMP 36.7; O2SAT 98
--- NOTE | 2023-10-26 16:36 | PC.NURSE ---
RX CHANGED TO TAMIFLU, VERBAL ORDER PER DR TALLEY. PREVIOUS RX UNAVAILABLE
== END 2023-10-26 15:55 | disposition home or self-care (01) ==
PROVIDERS: Emergency Provider Emergency Medicine; PCP Internal Medicine Adolescent Medicine
DX: J10.2 Influenza due to other identified influenza virus with gastrointestinal manifestations (principal); R11.10 Vomiting, unspecified; I10 Essential (primary) hypertension; E03.9 Hypothyroidism, unspecified; F17.210 Nicotine dependence, cigarettes, uncomplicated
CPT/HCPCS: 87636; 99283

== ENCOUNTER 2024-02-29 19:54 | Emergency (ER) | payer MEDICAID, SELFPAY ==
[2024-02-29 19:55] VITALS: BP 147/96; PULSE 100; RESP 16; TEMP 36.7; O2SAT 100; BMI 27.6
[2024-02-29] MEDS: LIDOCAINE 1% 10ML MDV 10 ML SQ (20:21)
[2024-02-29] MEDS: TET/DIPHTH/PERT-ADULT 0.5ML SYRINGE 0.5 ML IM (20:22)
--- NOTE | 2024-02-29 20:41 | ED_ITS ---
Discharge Plan Disposition Patient Disposition: Hospice - Medical Facility Chief Complaint: Wound/Laceration Prescriptions Prescriptions: No Action duloxetine 30 mg capsule,delayed release(DR/EC) 30 mg PO DAILY buspirone 10 mg tablet 10 mg PO BID buprenorphine-naloxone 8-2 mg tablet, sublingual 1 tab sublingual DAILY levothyroxine 50 mcg tablet 50 mcg PO DAILY metronidazole 500 mg tablet 500 mg PO BID 14 Days Qty: 28 0RF azithromycin 250 mg tablet See Rx Instructions PO .COMPLEX Qty: 6 0RF Rx Instructions: For 250 mg dose pack: take day 1 4 tablets), then 2 tablets day 2 PO metronidazole 500 mg tablet 500 mg PO BID Qty: 28 0RF Xofluza 40 mg tablet 40 mg PO ONCE Qty: 2 0RF ondansetron 4 mg tablet,disintegrating 4 mg PO Q6H PRN (Reason: nausea and vomiting) Qty: 10 0RF ibuprofen 800 mg tablet 800 mg PO Q6H PRN (Reason: post op pain) Qty: 40 0RF cyclobenzaprine 10 mg tablet 10 mg PO TID PRN (Reason: muscle spasm) Qty: 30 0RF prednisone [prednisone] 20 mg tablet 20 mg PO DAILY 5 Days Qty: 5 0RF ondansetron 4 mg Tablet,Disintegrating 4 mg PO Q8H PRN (Reason: Nausea) Qty: 12 0RF lidocaine HCl [Lidocaine Viscous] 2 % solution 1 applic mucous membrane QID PRN (Reason: mouth pain) Qty: 100 0RF azithromycin [Zithromax] 250 mg tablet 250 mg PO UD DOSE PK Qty: 6 0RF Rx Instructions: Take two (2) tablets today, then one (1) tablet days #2 thru #5 benzonatate [benzonatate] 100 mg capsule 100 mg PO TIDP PRN (Reason: Cough) Qty: 30 0RF ondansetron 4 mg Tablet,Disintegrating 4 mg PO Q8H PRN (Reason: Nausea) Qty: 12 0RF ondansetron 4 mg tablet,disintegrating 4 mg PO Q8H 3 Days Qty: 9 0RF Referrals Follow up/Referrals: Provider,Referral, MD [Primary Care Provider] - See instructions Activity Restrictions/Add. Instructions Additional Instructions/Restrictions: Follow-up with your family doctor or come to the triage area in 7 to 10 days to have laceration stitches removed. If you have any signs or symptoms of infection, come to the emergency department or talk to your family doctor for further management. Clinical Impressions Clinical Impression: Laceration of left thumb Instructions Patient Instructions: DI for Laceration Repair Discharge ED Provider: Jose Enrique Martin General Adult HPI General Chief complaint: Wound/Laceration Stated complaint: AO04/20 @1900 LT thumb lac Time Seen by Provider: 02/29/24 19:57 Mode of Arrival: Ambulatory Source of Information: Patient Limitations: No Limitations Description of Symptoms (Recalled from ER Triage Doc. by RN): Pt present with left thumb laceration from sharpening a knife. Last tetanus > 7yrs ago. No bleeding at this time. History of Present Illness HPI narrative: 43-year-old female up-to-date on vaccinations with tetanus 6 years ago presenting with laceration to left thumb. Happened just prior to arrival with a clean kitchen knife. She was sharpening it. No other trauma was sustained. Hemostatic on arrival Please note that above description of symptoms, in this electronic medical record under categorization of recalled from ER triage doctor by RN are reflective of an initial nursing assessment, however, is not reflective of my full history and physical exam that was personally taken and clarified. Consequentially, this preceding description of symptoms, which may include the patient's categorized chief complaint in the EMR, do not reflect my personal clinical impression, and the ultimate description of history of present illness and patient stated complaints should be deferred to this section of the note. Unless stated otherwise or congruent with this section of the note, additional signs, symptoms, or incongruence should be interpreted as inaccurate with my clinical impression. Related Data Home Medications Medication Instructions Recorded Confirmed buprenorphine 8 mg-naloxone 2 mg 1 tab sublingual DAILY substance 01/23/23 04/11/23 sublingual tablet abuse buspirone 10 mg tablet 10 mg PO BID Anxiety 01/23/23 04/11/23 duloxetine 30 mg capsule,delayed 30 mg PO DAILY . 01/23/23 04/11/23 release levothyroxine 50 mcg tablet 50 mcg PO DAILY thyroid 01/23/23 04/11/23 Previous Rx's Medication Instructions Recorded cyclobenzaprine 10 mg tablet 10 mg PO TID PRN muscle spasm #30 03/13/23 tabs ibuprofen 800 mg tablet 800 mg PO Q6H PRN post op pain #40 03/13/23 tabs metronidazole 500 mg tablet 500 mg PO BID 14 days #28 tabs 04/11/23 azithromycin 250 mg tablet See Rx Instructions PO .COMPLEX #6 04/23/23 tabs metronidazole 500 mg tablet 500 mg PO BID #28 tabs 04/23/23 lidocaine HCl 2 % mucosal solution 1 applic mucous membrane QID PRN 06/18/23 (Lidocaine Viscous) mouth pain #100 mL ondansetron 4 mg disintegrating 4 mg PO Q8H PRN Nausea #12 tabs 06/18/23 tablet prednisone 20 mg tablet 20 mg PO DAILY 5 days #5 tabs 06/18/23 azithromycin 250 mg tablet 250 mg PO UD DOSE PK #6 tabs 07/01/23 (Zithromax) benzonatate 100 mg capsule 100 mg PO TIDP PRN Cough #30 caps 07/01/23 ondansetron 4 mg disintegrating 4 mg PO Q8H PRN Nausea #12 tabs 07/01/23 tablet ondansetron 4 mg disintegrating 4 mg PO Q8H 3 days #9 tabs 08/19/23 tablet baloxavir marboxil 40 mg tablet 40 mg PO ONCE #2 tabs 10/26/23 (Xofluza) ondansetron 4 mg disintegrating 4 mg PO Q6H PRN nausea and 10/26/23 tablet vomiting #10 tabs Allergies Allergy/AdvReac Type Severity Reaction Status Date / Time Penicillins [PENICILLINS] Allergy Unknown Verified 04/11/23 11:18 [facility] Disclaimer: The information contained in this section may have been updated after the patient was seen, as this information can be updated by other users. Medical History (Updated 02/29/24 @ 20:45 by Jose Enrique Martin MD) Kidney stone Urinary tract infection Anxiety Depression Irritable bowel syndrome (IBS) Hypothyroid Urinary incontinence Abdominal pain Hypertension Surgical History (Updated 04/11/23 @ 11:24 by RAN Mujica) History of carpal tunnel surgery Hx of foot surgery Hx of appendectomy Hx of cholecystectomy Family History Other Family history of cancer Family history of diabetes mellitus type II Family history of myocardial infarction Hypertension Stroke Social History Smoking Status: Current every day smoker tobacco type: cigarettes packs per day: 1 and e-cigarettes second hand exposure: No alcohol intake: never substance use type: denies use current occupational status: employed Travel in the last 8 weeks: None household members: family housing: house current occupation: [employer] current occupational exposures/hazards: No caffeine: Yes ROS Obtained: Yes All systems reviewed & no additional complaints except as documented Physical Exam General General appearance: alert and in no apparent distress Respiratory Respiratory exam: Absent respiratory distress Cardiovascular Cardiovascular exam: Present other (Capillary refill intact, pulses equal and symmetric) Extremities Exam Extremities exam: Present other (1 cm laceration overlying PIP left thumb dorsally. Range of motion intact, neurovascularly intact) Neurological Exam Neurological exam: Present alert Medical Decision Making Medical Records Medical records reviewed: Yes I reviewed the patient's medical records. Elio Inquiry Pt receiving controlled substance: No Elio was queried for this patient: No Vital Signs: 02/29/24 19:55 Temperature 98.1 F Temperature Source Oral Pulse Rate [Left] 100 H Respiratory Rate 16 Blood Pressure [Right Arm] 147/96 H Blood Pressure Mean [Right Arm] 113 Blood Pressure Source [Right Arm] Automatic Cuff 02 Sat by Pulse Oximetry 100 Oxygen Delivery Method Room Air Orders (Tests/Meds): ED MEDICATIONS Discontinued Medications Generic Name Dose Route Start Last Admin Trade Name Freq PRN Reason Stop Dose Admin Lidocaine HCl 10 ml 02/29/24 20:13 02/29/24 20:21 Lidocaine 1% 10ml Mdv SQ 02/29/24 20:14 10 ml ONCE ONE Administration Tetanus/Reduced Diphtheria/Acell Pertussis 0.5 ml 02/29/24 20:13 02/29/24 20:22 Tet/Diphth/Pert-Adult 0.5ml Syringe IM 02/29/24 20:14 0.5 ml .ONCE ONE Administration Medical Decision Narrative: 43-year-old female up-to-date on vaccinations with tetanus 6 years ago presenting with laceration to left thumb. Happened just prior to arrival with a clean kitchen knife. She was sharpening it. No other trauma was sustained. Hemostatic on arrival. History obtained with patient. Patient has 1 cm laceration overlying dorsal aspect of left thumb PIP. Neurovascular intact, range of motion intact. Patient was anesthetized with 1% lidocaine without epinephrine. It was closed with 3X3.0 nylon sutures. Tetanus updated. Because patient at baseline without signs or symptoms of clinical decompensation, deemed appropriate for discharge. Results were relayed to patient who voiced understa nding and were agreeable to outpatient management and follow up. I discussed my clinical impression with patient and answered all questions. At this time, the evidence for any other entities in the differential is insufficient to warrant any further testing or ED observation. This was explained as well. Advisory was given that persistent or worsening symptoms require further evaluation. I confirmed the understanding of this discussion. Procedures Laceration Laceration 1: Site: thumb Side (If applicable): left Size (cm): 1 Description: linear Depth: simple, single layer Local Anesthetic: lidocaine 1% Amount of anesthesia used (mL): 5 Pre-repair: wound explored Skin layer closed with: nylon Size (cm): 3-0 Number of sutures: 3 Technique: simple, interrupted Critical Care Critical Care Time Critical Care Time: No
[2024-02-29 20:49] VITALS: BP 146/82; PULSE 89; RESP 18; TEMP 36.7; O2SAT 99
== END 2024-02-29 20:51 | disposition home or self-care (01) ==
PROVIDERS: Emergency Provider Emergency Medicine
DX: S61.012A Laceration without foreign body of left thumb without damage to nail, initial encounter (principal); F17.210 Nicotine dependence, cigarettes, uncomplicated; E03.9 Hypothyroidism, unspecified; I10 Essential (primary) hypertension; W26.0XXA Contact with knife, initial encounter; Z23 Encounter for immunization
CPT/HCPCS: 12001; 90471; 90715; 99283

== ENCOUNTER 2024-03-23 12:33 | Outpatient (CLI) | payer MEDICAID, SELFPAY ==
--- NOTE | 2024-03-23 12:43 | XR_ITS ---
FINAL REPORT CLINICAL HISTORY: .pt had cutting inj x 3 wks ago-- still pain thumb COMPARISON: None FINDINGS: 3 views of the left thumb were obtained. There is no acute fracture or dislocation. The joint spaces are intact. The soft tissues are unremarkable. IMPRESSION: No acute process. Reviewed, Interpreted and Dictated by Ignacio Calhoun III, MD Transcribed by Liv Antonio Authenticated and [facility]
== END 2024-03-23 23:59 | disposition home or self-care (01) ==
LOC: RAD 12:34
PROVIDERS: PCP Nurse Practitioner Family; Visit Provider Nurse Practitioner Family
DX: M79.644 Pain in right finger(s) (principal); S60.9 Unspecified superficial injury of wrist, hand and fingers
CPT/HCPCS: 73140

== ENCOUNTER 2024-05-08 15:05 | Outpatient (CLI) | payer MEDICAID, SELFPAY | END 2024-05-08 23:59 | disposition home or self-care (01) | LOC: RAD 15:06 | PROVIDERS: PCP Nurse Practitioner Family; Visit Provider Nurse Practitioner Family | DX: Z12.31 Encounter for screening mammogram for malignant neoplasm of breast (principal) | CPT/HCPCS: 77063; 77067 ==